=== PATIENT | female | born 1940 | race Hispanic/Latino ===

== ENCOUNTER 2017-03-12 18:46 | Inpatient (IN) | payer MEDICARE, OTHER ==
[2017-03-12 19:55] LABS: BASO # 0.1 K/uL (0.0-0.2); EOS # 0.3 K/uL (0.0-0.7); EOS % 3.3 % (0.0-4.0); HEMOGLOBIN 9.1 g/dL (12.0-16.0); LYMPH # 1.6 K/uL (1.0-4.3); LYMPH % 20.5 % (20.0-40.0); MEAN CELL VOLUME 83.3 fl (81.0-99.0); MEAN CORPUSCULAR HEMOGLOBIN 25.3 pg (27.0-31.0); MEAN CORPUSCULAR HGB CONC 30.3 g/dL (33.0-37.0); MEAN PLATELET VOLUME 7.9 fl (7.2-11.7); MONO # 0.8 K/uL (0.0-0.8); MONO % 9.6 % (0.0-10.0); NEUT # 5.2 K/uL (1.8-7.0); NEUT % 65.6 % (50.0-75.0); NRBC % 0.1 % (0.0-0.0); RBC 3.59 Mil/uL (3.80-5.20); RED CELL DISTRIBUTION WIDTH 18.4 % (11.5-14.5)
--- NOTE | 2017-03-12 19:55 | ED PDOC ---
Syncope/Near Syncope/Dizziness Time Seen by Provider: 03/12/17 18:55 Chief Complaint (Provider): Fall History Per: Patient, Family (son and ) History/Exam Limitations: no limitations Onset/Duration Of Symptoms: Hrs (1 hours ago ) Current Symptoms Are (Timing): Better Additional Complaint(s): 76 year old female presents to the emergency department accompanied by son and partner with a complaint of a right shoulder pain status post injury after she had weakness to the legs bilaterally causing her to fall to the ground, witness by partner, 1 hour prior to arrival. Associated with chronic neck and back pain. Patient has had a few episodes of falling to the ground in the past. Last two episodes were yesterday, 03/11/2017 while walking in the living room and 2 days ago, while in the bathroom. Reports she has generalized weakness and thirst after every fall. Patient has a past medical history of anemia, thyroid, osteopenia, and hypertension. Patient had a coronary angiogram about 2-3 years ago and one last month. Denies dizziness, syncope, chest pain, shortness of breath, and palpitations or head injury. PCP: Dr. Barron and Dr. Radha Callahan Past Medical History Vital Signs: Last Vital Signs Temp 98 F 03/12/17 18:48 Pulse 64 03/12/17 18:48 Resp 20 03/12/17 18:48 BP 134/72 03/12/17 18:48 Pulse Ox - Medical History PMH: Anemia (Iron IV), Anxiety, CAD (catherization last month), Depression, HTN , Hypercholesterolemia, Hypothyroidism, Chronic Kidney Disease Denies: HIV - Surgical History Surgical History: Tonsillectomy - Family History Family History: States: Unknown Family Hx - Home Medications Home Medications: Ambulatory Orders Medication Instructions Recorded Rosuvastatin Calcium [Crestor] 40 mg PO DAILY 05/09/14 Venlafaxine [Effexor XR] 150 mg PO BID 05/09/14 ALPRAZolam [Xanax] 1 mg PO BID 03/12/17 Aspirin [Aspirin Chewable] 81 mg PO DAILY 03/12/17 Atenolol [Tenormin] 25 mg PO BID 03/12/17 Atenolol [Tenormin] 50 mg PO DAILY 03/12/17 Levothyroxine [Synthroid] 50 mcg PO DAILY 03/12/17 Lisinopril/Hydrochlorothiazide 1 tab PO DAILY 03/12/17 [Lisinopril-Hctz 10-12.5 mg Tab] Meloxicam [Mobic] 7.5 mg PO DAILY 03/12/17 - Allergies Allergies/Adverse Reactions: Allergies Allergy/AdvReac Type Severity Reaction Status Date / Time No Known Allergies Allergy Verified 05/09/14 16:45 Review of Systems ROS Statement: Except As Marked, All Systems Reviewed And Found Negative Constitutional: Positive for: Weakness (generalized). Negative for: Other ( head injury or syncope) Cardiovascular: Negative for: Chest Pain, Palpitations Respiratory: Negative for: Shortness of Breath Musculoskeletal: Positive for: Neck Pain (not new ), Shoulder Pain (right shoulder pain), Back Pain (not new ) Neurological: Positive for: Weakness (weakness of the leg bilaterally). Negative for: Dizziness Physical Exam - Reviewed Nursing Documentation Reviewed: Yes Vital Signs Reviewed: Yes - Physical Exam Appears: Positive for: Well, Non-toxic, No Acute Distress Head Exam: Positive for: ATRAUMATIC, NORMAL INSPECTION, NORMOCEPHALIC Skin: Positive for: Normal Color, Warm, Dry Eye Exam: Positive for: Normal appearance, PERRL Neck: Positive for: Normal, Pain On Movement Of Neck (C-spine tenderness) Cardiovascular/Chest: Positive for: Regular Rate, Rhythm. Negative for: Murmur Respiratory: Positive for: Normal Breath Sounds. Negative for: Accessory Muscle Use, Respiratory Distress Back: Positive for: Normal Inspection (no thoracic or lower lumbar midline tenderness) Extremity: Positive for: Normal ROM (Full range of motion of all the upper and lower extremities except the right shoulder), Tenderness (Tenderness around left shoulder with decreased ROM secondary to pain). Negative for: Other (no hip, humerus, elbow or foream tenderness) Neurologic/Psych: Positive for: Alert, cafe or restaurant manager II-XII (intact), Oriented (x3), Cerebellar Tests (intact). Negative for: Facial Droop - Laboratory Results Result Diagrams: 03/12/17 19:39 03/12/17 19:39 - ECG Interpretation Of ECG: NSR @ 79. - Radiology X-Ray: Interpreted by In X-Ray Interpretation: Other (? Widened mediastinum) - Other Rad XR L shoulder X-Ray: Interpreted by In X-Ray Interpretation: No fx. Medical Decision Making Medical Decision Making: Time: 1902 Initial impression: Shoulder Pain and weakness Status Post Fall Initial plan: --Cervical Spine CT --Head CT --Comp Metabolic Panel --TSH --Troponin I --ED Urine dipstick --EKG --CBC --PTT --Prothrombin --Chest Portable --Accuheck --Ortho BP --Shoulder Left x-ray --Urinalysis --reevaluation Time: 1948 --Angiography CT Time: 2099 --Head CT FINDINGS: Brain: [id number] atrophy. No intracranial hemorrhage. No mass. Minimal decreased attenuation within periventricular white matter. Probable chronic lacunar infarct within RIGHT basal ganglia. No edema. Ventricles: No hydrocephalus. Bones/joints: No acute fracture. Soft tissues: Unremarkable. Vasculature: Minimal atherosclerotic disease of intracranial arteries. Sinuses: No acute sinusitis. Mastoid air cells: No mastoid effusion. Orbits: Unremarkable as visualized. IMPRESSION: 1. No intracranial hemorrhage. 2. Nonspecific white matter changes. 3. Incidental/non-acute findings are described above Time: 2102 --Cervical Spine CT FINDINGS: Vertebrae: No acute fracture. Discs/spinal canal/neural foramina: Moderate to severe degenerative disc disease within lower cervical spine. Disc herniations within mid and lower cervical spine, suboptimally evaluated. Mild indentation thecal sac/cord lower cervical spine. Neuroforaminal narrowing within lower cervical spine. Soft tissues: Unremarkable. IMPRESSION: 1. No fracture. 2. Incidental/non-acute findings are described above. Time: 2145 --CT AngioGraphy FINDINGS: Limitations: Motion artifact - mild. Pulmonary arteries: No pulmonary embolism. Aorta: Mild atherosclerotic disease. No dissection. No aneurysm. Lungs: Mild atelectasis/scarring. No consolidation. Pleural space: No significant effusion. No pneumothorax. Heart: Borderline cardiomegaly. No significant pericardial effusion. Mediastinum: Moderate-sized hiatal hernia.Bones/joints: Mild curvature of spine. Deformity inferior endplate T12 vertebral body, chronic. No acute fracture. Soft tissues: Unremarkable. Lymph nodes: No pathologically enlarged lymph nodes. IMPRESSION: 1. No definite CT evidence of visceral injury. 2. Incidental/non-acute findings are described above. --CT Angiography Abdomen and pelvis FINDINGS: Limitations: Motion artifact - mild. VASCULATURE: Aorta: Meaq-yo-phvjlfgk atherosclerotic disease. No dissection. No aneurysm. Celiac trunk and mesenteric arteries: No occlusion or significant stenosis. Renal arteries: No occlusion or significant stenosis. Iliac arteries: Mild atherosclerotic disease. No occlusion or significant stenosis. ABDOMEN: Liver: Fatty infiltration. Gallbladder and bile ducts: No calcified stones. No ductal dilation. Pancreas: No ductal dilation. N Adrenals: No mass. Kidneys and ureters: No obstructing stones. No hydronephrosis. No solid mass. Stomach and bowel: Scattered diverticula within colon. No associated inflammatory stranding. No definite mural thickening. No obstruction. Appendix: Normal caliber. No inflammation. PELVIS: Bladder: No stones. No mass. Reproductive: Unremarkable as visualized. ABDOMEN and PELVIS: Intraperitoneal space: No significant fluid collection. No free air. Bones/joints: Mild curvature of spine. Degenerative changes of spine. No acute fracture. Soft tissues: Tiny umbilical hernia containing fat. Lymph nodes: No pathologically enlarged lymph nodes. IMPRESSION: 1. No definite CT evidence of visceral injury. 2. Incidental/non-acute findings are described above. Pt with continued lightheadedness and generalized weakness, will place in obs tele for IVF hydration, requests to be admitted under Dr. Kim (previous PMD) . Scribe Attestation: Documented by Shruthi Collier, acting as a scribe for Amada Rolle MD. Provider Scribe Attestation: All medical record entries made by the Scribe were at my direction and personally dictated by me. I have reviewed the chart and agree that the record accurately reflects my personal performance of the history, physical exam, medical decision making, and the department course for this patient. I have also personally directed, reviewed, and agree with the discharge instructions and disposition. Disposition - Clinical Impression Clinical Impression: Orthostatic hypotension, Generalized weakness, Frequent falls, Shoulder injury - Patient ED Disposition Is Patient to be Admitted: Yes - Disposition Disposition Time: 22:30 Condition: STABLE Forms: [employer] ([employer]) - Pt Status Changed To: Hospital Disposition Of: Observation - POA Present On Arrival: None
[2017-03-12 20:10] LABS: ALB/GLOB RATIO 1.3 (1.0-2.1); ALBUMIN 4.2 g/dL (3.5-5.0); ALT/SGPT 34 U/L (9-52); AST/SGOT 28 U/L (14-36); BLOOD UREA NITROGEN 23 mg/dl (7-17); CALCIUM 9.8 mg/dL (8.4-10.2); GFR AFRICAN-AMERICAN 41; GFR NON-AFRICAN AMERICAN 34
[2017-03-12] MEDS ORDERED: Sodium Chloride 0.9% 1,000 ML IV STA (20:11)
[2017-03-12 20:23] LABS: INR 1.2 (0.9-1.2); PARTIAL THROMBOPLASTIN TIME 27.6 Seconds (25.6-37.1); PROTHROMBIN TIME 12.8 Seconds (9.8-13.1)
[2017-03-12] MEDS ORDERED: Iodixanol 320 MG/ML 100 ML BOTTLE IV ONE (20:24)
[2017-03-12] MEDS ORDERED: Sodium Chloride 0.9% 50 ML IV ONE (20:24)
--- NOTE | 2017-03-12 21:00 | CT ---
EXAM: CT Head Without Intravenous Contrast CLINICAL HISTORY: 76 years old, female; Injury or trauma; Fall; Initial encounter; Laceration; Consciousness not specified; Without residual foreign body; Head, generalized; Injury date: 3 days ago; Injury details: S/P falling dizziness; Additional info: Syncope TECHNIQUE: Axial computed tomography images of the head/brain without intravenous contrast. All CT scans at this facility use one or more dose reduction techniques, viz.: automated exposure control; ma/kV adjustment per patient size (including targeted exams where dose is matched to indication; i.e. head); or iterative reconstruction technique. Coronal and sagittal reformatted images were created and reviewed. COMPARISON: No relevant prior studies available. FINDINGS: Brain: Dyhn-xg-onbyrzcu atrophy. No intracranial hemorrhage. No mass. Minimal decreased attenuation within periventricular white matter. Probable chronic lacunar infarct within RIGHT basal ganglia. No edema. Ventricles: No hydrocephalus. Bones/joints: No acute fracture. Soft tissues: Unremarkable. Vasculature: Minimal atherosclerotic disease of intracranial arteries. Sinuses: No acute sinusitis. Mastoid air cells: No mastoid effusion. Orbits: Unremarkable as visualized. IMPRESSION: 1. No intracranial hemorrhage. 2. Nonspecific white matter changes. 3. Incidental/non-acute findings are described above.
--- NOTE | 2017-03-12 21:03 | CT ---
EXAM: CT Cervical Spine Without Intravenous Contrast CLINICAL HISTORY: 76 years old, female; Injury or trauma; Fall; Initial encounter; Laceration; Without foreign body; Injury date: 3 days ago; Injury details: S/P falling. Dizziness; Patient HX: Tonsillectomy. Cardiac catherization TECHNIQUE: Axial computed tomography images of the cervical spine without intravenous contrast. All CT scans at this facility use one or more dose reduction techniques, viz.: automated exposure control; ma/kV adjustment per patient size (including targeted exams where dose is matched to indication; i.e. head); or iterative reconstruction technique. Coronal and sagittal reformatted images were created and reviewed. COMPARISON: No relevant prior studies available. FINDINGS: Vertebrae: No acute fracture. Discs/spinal canal/neural foramina: Moderate to severe degenerative disc disease within lower cervical spine. Disc herniations within mid and lower cervical spine, suboptimally evaluated. Mild indentation thecal sac/cord lower cervical spine. Neuroforaminal narrowing within lower cervical spine. Soft tissues: Unremarkable. IMPRESSION: 1. No fracture. 2. Incidental/non-acute findings are described above.
--- NOTE | 2017-03-12 21:46 | CT ---
EXAM: CT Angiography Chest Without and With Intravenous Contrast CLINICAL HISTORY: 76 years old, female; Injury or trauma; Fall; Initial encounter; Laceration; Without foreign body; Generalized, abdominal; Injury date: 3 days ago; Injury details: Falling. Dizziness; Prior surgery; Surgery date: Post-operative (0-2 days); Surgery type: Cardiac catherization. Tonsillectomy; Additional info: Fall x 3 TECHNIQUE: Axial computed tomographic angiography images of the chest without and with intravenous contrast using pulmonary embolism protocol. All CT scans at this facility use one or more dose reduction techniques, viz.: automated exposure control; ma/kV adjustment per patient size (including targeted exams where dose is matched to indication; i.e. head); or iterative reconstruction technique. MIP reconstructed images were created and reviewed. Coronal and sagittal reformatted images were created and reviewed. CONTRAST: 98 mL of VISIPAQUE administered intravenously. COMPARISON: No relevant prior studies available. FINDINGS: Limitations: Motion artifact - mild. Pulmonary arteries: No pulmonary embolism. Aorta: Mild atherosclerotic disease. No dissection. No aneurysm. Lungs: Mild atelectasis/scarring. No consolidation. Pleural space: No significant effusion. No pneumothorax. Heart: Borderline cardiomegaly. No significant pericardial effusion. Mediastinum: Moderate-sized hiatal hernia. Bones/joints: Mild curvature of spine. Deformity inferior endplate T12 vertebral body, chronic. No acute fracture. Soft tissues: Unremarkable. Lymph nodes: No pathologically enlarged lymph nodes. IMPRESSION: 1. No definite CT evidence of visceral injury. 2. Incidental/non-acute findings are described above. EXAM: CT Angiography Abdomen and Pelvis Without and With Intravenous Contrast CLINICAL HISTORY: 76 years old, female; Injury or trauma; Fall; Initial encounter; Laceration; Without foreign body; Generalized, abdominal; Injury date: 3 days ago; Injury details: Falling. Dizziness; Prior surgery; Surgery date: Post-operative (0-2 days); Surgery type: Cardiac catherization. Tonsillectomy; Additional info: Fall x 3 TECHNIQUE: Axial computed tomographic angiography images of the abdomen and pelvis without and with intravenous contrast. All CT scans at this facility use one or more dose reduction techniques, viz.: automated exposure control; ma/kV adjustment per patient size (including targeted exams where dose is matched to indication; i.e. head); or iterative reconstruction technique. MIP reconstructed images were created and reviewed. Coronal and sagittal reformatted images were created and reviewed. CONTRAST: 98 mL of VISIPAQUE administered intravenously. COMPARISON: No relevant prior studies available. FINDINGS: Limitations: Motion artifact - mild. VASCULATURE: Aorta: Dkjh-hs-zhfumwkr atherosclerotic disease. No dissection. No aneurysm. Celiac trunk and mesenteric arteries: No occlusion or significant stenosis. Renal arteries: No occlusion or significant stenosis. Iliac arteries: Mild atherosclerotic disease. No occlusion or significant stenosis. ABDOMEN: Liver: Fatty infiltration. Gallbladder and bile ducts: No calcified stones. No ductal dilation. Pancreas: No ductal dilation. No mass. Spleen: No splenomegaly. Adrenals: No mass. Kidneys and ureters: No obstructing stones. No hydronephrosis. No solid mass. Stomach and bowel: Scattered diverticula within colon. No associated inflammatory stranding. No definite mural thickening. No obstruction. Appendix: Normal caliber. No inflammation. PELVIS: Bladder: No stones. No mass. Reproductive: Unremarkable as visualized. ABDOMEN and PELVIS: Intraperitoneal space: No significant fluid collection. No free air. Bones/joints: Mild curvature of spine. Degenerative changes of spine. No acute fracture. Soft tissues: Tiny umbilical hernia containing fat. Lymph nodes: No pathologically enlarged lymph nodes.
[2017-03-12 23:03] LABS: SQUAMOUS EPITHIAL 4 /hpf (0-5); URINE BILIRUBIN NEGATIVE (NEGATIVE); URINE BLOOD NEGATIVE (NEGATIVE); URINE CLARITY SLIGHTY-CLOUDY (Clear); URINE COLOR YELLOW (YELLOW); URINE GLUCOSE (UA) NEG (Normal); URINE LEUKOCYTE ESTERASE TRACE Leu/uL (Negative); URINE NITRATE NEGATIVE (NEGATIVE); URINE PROTEIN 100 mg/dL (NEGATIVE); URINE UROBILINOGEN 0.2-1.0 mg/dL (0.2-1.0)
[2017-03-13] MEDS: Sodium Chloride 0.9% 1,000 ML IV SCH ×2 (06:47→22:19)
[2017-03-13] MEDS: Levothyroxine 50 MCG TAB PO SCH (08:55)
[2017-03-13] MEDS: Venlafaxine 150 mg ER Cap PO SCH ×2 (08:56→16:35)
--- NOTE | 2017-03-13 10:07 | RAD ---
HISTORY: Syncope COMPARISON: 03/06/2014 FINDINGS: LUNGS: No active pulmonary disease. PLEURA: No significant pleural effusion identified, no pneumothorax apparent. CARDIOVASCULAR: Unchanged. OSSEOUS STRUCTURES: No significant abnormalities. VISUALIZED UPPER ABDOMEN: Normal. OTHER FINDINGS: Mild to moderate-sized retrocardiac hiatal hernia is seen. IMPRESSION: No active disease.
--- NOTE | 2017-03-13 10:10 | RAD ---
PROCEDURE: Radiographs of the Left Shoulder HISTORY: Fall COMPARISON: No prior. FINDINGS: BONES: Three views of the left shoulder were performed. No fracture is seen. No dislocation is noted. There is a high-riding humeral head appreciated suggesting rotator cuff pathology. There is also degenerative changes seen in the left AC joint without widening. Minimal calcific bursitis is noted. Visualized left ribs are intact. No lytic process is seen. JOINTS: See above SOFT TISSUES: See above OTHER FINDINGS: None. IMPRESSION: No fracture or dislocation.
--- NOTE | 2017-03-13 11:59 | CARD ---
APPROVED REPORT EKG Measurement Heart [id number] <Conclusion> Normal sinus rhythm Nonspecific T wave abnormality Abnormal ECG
--- NOTE | 2017-03-13 12:06 | CP.PCM.HP ---
History of Present Illness - History of Present Illness History of Present Illness: This is a 76 y/o female admitted for an episode of near syncope at home. Claims that she felt dizzy while at home and upon standing up, she almost had a fall. She has been on ferrous bid but has not been compliant with follow up. Has a hx of chronic recurrent anemia and HTN, hyperlipidemia and hypothyroidism. Previous work up showed chronic iron def anemia. She denies any headaches, dizziness chest pain or SOB. Present on Admission - Present on Admission Any Indicators Present on Admission: No History of DVT/PE: No History of Uncontrolled Diabetes: No Urinary Catheter: No Decubitus Ulcer Present: No Review of Systems - Neurological Neurological: Dizziness Past Patient History - Infectious Disease Hx of Infectious Diseases: None - Past Medical History & Family History Past Medical History?: Yes - Past Social History Smoking Status: Never Smoked - CARDIAC Hx Cardiac Disorders: Yes - PULMONARY Hx Respiratory Disorders: No - NEUROLOGICAL Hx Neurological Disorder: No - HEENT Hx HEENT Problems: Yes - RENAL Hx Chronic Kidney Disease: Yes - ENDOCRINE/METABOLIC Hx Endocrine Disorders: Yes - HEMATOLOGICAL/ONCOLOGICAL Hx Blood Disorders: Yes - INTEGUMENTARY Hx Dermatological Problems: Yes - MUSCULOSKELETAL/RHEUMATOLOGICAL Hx Musculoskeletal Disorders: Yes - GASTROINTESTINAL Hx Gastrointestinal Disorders: No - GENITOURINARY/GYNECOLOGICAL Hx Genitourinary Disorders: No - PSYCHIATRIC Hx Psychophysiologic Disorder: Yes - SURGICAL HISTORY Hx Surgeries: Yes Hx Tonsillectomy: Yes - ANESTHESIA Hx Anesthesia: Yes Hx Anesthesia Reactions: No Meds Home Medications: Home Medication List Medication Instructions Recorded Confirmed Type Ferrous Fumarate [Annalise-Sequel] 324 mg PO DAILY #30 tab 03/15/17 Rx Allergies/Adverse Reactions: Allergies Allergy/AdvReac Type Severity Reaction Status Date / Time No Known Allergies Allergy Verified 05/09/14 16:45 Physical Exam - Head Exam Head Exam: NORMAL INSPECTION - Eye Exam Eye Exam: Normal appearance - ENT Exam ENT Exam: Mucous Membranes Moist - Neck Exam Neck exam: Positive for: Normal Inspection - Respiratory Exam Respiratory Exam: Clear to Auscultation Bilateral - Cardiovascular Exam Cardiovascular Exam: REGULAR RHYTHM - GI/Abdominal Exam GI & Abdominal Exam: Normal Bowel Sounds - Neurological Exam Neurological exam: CN II-XII Intact, Oriented x3 - Psychiatric Exam Psychiatric exam: Normal Affect - Skin Skin Exam: Dry Results - Vital Signs Recent Vital Signs: Last Vital Signs Temp 98.8 F 03/13/17 08:17 Pulse 89 01/07/18 09:00 Resp 20 03/13/17 08:17 BP 122/50 L 03/13/17 08:55 Pulse Ox 95 03/13/17 08:17 - Labs Result Diagrams: 03/15/17 08:50 03/14/17 04:35 Labs: Laboratory Results - last 24 hr 03/12/17 03/12/17 03/12/17 19:06 19:39 19:39 WBC 8.0 RBC 3.59 L Hgb 9.1 L Hct 29.9 L MCV 83.3 D MCH 25.3 L MCHC 30.3 L RDW 18.4 H Plt Count 414 H D MPV 7.9 Neut % (Auto) 65.6 Lymph % (Auto) 20.5 Amelia % (Auto) 9.6 Eos % (Auto) 3.3 Baso % (Auto) 1.0 Neut # 5.2 Lymph # 1.6 Amelia # 0.8 Eos # 0.3 Baso # 0.1 PT INR APTT Sodium 141 Potassium 3.7 Chloride 100 Carbon Dioxide 30 Anion Gap 15 BUN 23 H Creatinine 1.5 H Est GFR ( Amer) 41 Est GFR (Non-Af Amer) 34 POC Glucose (mg/dL) 119 H Random Glucose 128 H Calcium 9.8 Total Bilirubin < 0.1 L AST 28 ALT 34 Alkaline Phosphatase 73 Troponin I < 0.0120 Total Protein 7.4 Albumin 4.2 Globulin 3.3 Albumin/Globulin Ratio 1.3 TSH 3rd Generation Urine Color Urine Clarity Urine pH Ur Specific [place] Urine Protein Urine Glucose (UA) Urine Ketones Urine Blood Urine Nitrate Urine Bilirubin Urine Urobilinogen Ur Leukocyte Esterase Urine RBC (Auto) Urine Microscopic WBC Ur Squamous Epith Cells 03/12/17 03/12/17 03/12/17 19:39 20:17 22:32 WBC RBC Hgb Hct MCV MCH MCHC RDW Plt Count MPV Neut % (Auto) Lymph % (Auto) Amelia % (Auto) Eos % (Auto) Baso % (Auto) Neut # Lymph # Amelia # Eos # Baso # PT 12.8 INR 1.2 APTT 27.6 Sodium Potassium Chloride Carbon Dioxide Anion Gap BUN Creatinine Est GFR ( Amer) Est GFR (Non-Af Amer) POC Glucose (mg/dL) Random Glucose Calcium Total Bilirubin AST ALT Alkaline Phosphatase Troponin I Total Protein Albumin Globulin Albumin/Globulin Ratio TSH 3rd Generation 3.64 Urine Color Yellow Urine Clarity Slighty-cloudy Urine pH 6.0 Ur Specific [place] > 1.060 H Urine Protein 100 Urine Glucose (UA) Neg Urine Ketones Negative Urine Blood Negative Urine Nitrate Negative Urine Bilirubin Negative Urine Urobilinogen 0.2-1.0 Ur Leukocyte Esterase Trace Urine RBC (Auto) 3 Urine Microscopic WBC 7 H Ur Squamous Epith Cells 4 Assessment & Plan (1) Generalized weakness Status: Acute (2) Orthostatic hypotension Status: Acute (3) Anemia Status: Acute Priority: High (4) Hyperlipidemia Status: Chronic (5) Hypertension Status: Chronic Priority: High (6) Hypothyroidism Status: Chronic Priority: High - Assessment and Plan (Free Text) Plan: monitor cbc cmp check A1c tsh check ECHO transfuse if needed.
[2017-03-14 05:59] LABS: MEAN CELL VOLUME 81.9 fl (81.0-99.0); MEAN CORPUSCULAR HEMOGLOBIN 26.5 pg (27.0-31.0); MEAN CORPUSCULAR HGB CONC 32.3 g/dL (33.0-37.0); RBC 2.64 Mil/uL (3.80-5.20); RED CELL DISTRIBUTION WIDTH 18.7 % (11.5-14.5); WHITE BLOOD COUNT 7.7 K/uL (4.8-10.8)
[2017-03-14] MEDS: Levothyroxine 50 MCG TAB PO SCH (06:02)
[2017-03-14 06:04] LABS: ALB/GLOB RATIO 1.1 (1.0-2.1); ALBUMIN 3.2 g/dL (3.5-5.0); ALT/SGPT 27 U/L (9-52); AST/SGOT 20 U/L (14-36); BLOOD UREA NITROGEN 22 mg/dl (7-17); CALCIUM 8.7 mg/dL (8.4-10.2); GFR AFRICAN-AMERICAN 48; GFR NON-AFRICAN AMERICAN 40
[2017-03-14] MEDS: Venlafaxine 150 mg ER Cap PO SCH ×2 (08:59→16:13)
[2017-03-14 16:41] LABS: MEAN CELL VOLUME 82.5 fl (81.0-99.0); MEAN CORPUSCULAR HEMOGLOBIN 25.3 pg (27.0-31.0); MEAN CORPUSCULAR HGB CONC 30.6 g/dL (33.0-37.0); RBC 2.66 Mil/uL (3.80-5.20); RED CELL DISTRIBUTION WIDTH 18.5 % (11.5-14.5); WHITE BLOOD COUNT 7.8 K/uL (4.8-10.8)
[2017-03-14 16:46] LABS: HEMOGLOBIN 6.7 g/dL (12.0-16.0)
--- NOTE | 2017-03-14 17:02 | CARD ---
APPROVED REPORT EXAM: Two-dimensional and M-mode echocardiogram with Doppler and color Doppler. Other Information Quality : AverageRhythm : NSR INDICATION Hypertension/HCVD 2D DIMENSIONS IVSd1.27 (0.7-1.1cm)LVDd4.20 (3.9-5.9cm) LVOT Diameter2.00 (1.8-2.4cm)PWd1.18 (0.7-1.1cm) IVSs1.47 (0.8-1.2cm)LVDs2.90 (2.5-4.0cm) FS (%) 31.1 %PWs1.69 (0.8-1.2cm) LVEF (%)59.0 (>50%) M-Mode DIMENSIONS Left Atrium (MM)3.89 (2.5-4.0cm)IVSd0.90 (0.7-1.1cm) Aortic Root3.05 (2.2-3.7cm)LVDd5.20 (4.0-5.6cm) Aortic Cusp Exc.1.71 (1.5-2.0cm)PWd0.81 (0.7-1.1cm) IVSs1.40 cmFS (%) 51 % LVDs2.55 (2.0-3.8cm)PWs2.08 cm LVEF (%)81 (>50%) Aortic Valve AoV Peak Yohgyrxf088.4cm/sAoV VTI34.9cmAO Peak GR.16mmHg LVOT Peak Dzboitmx218.5cm/sLVOT VTI25.42cmAO Mean GR.7mmHg AI P 1/2 [id number] Mitral Valve MV E Jjwwhgar02.3cm/sMV DECEL [id number] A Ojxcratz01.3cm/s MV JNA91acH/A ratio0.7MVA (PHT)5.23cm2 TDI Lateral E' Peak V9.21cm/sMedial E' Peak V5.30cm/sE/Lateral E'6.9 E/Medial E'11.9 Tricuspid Valve TR Peak Lehtziqh112oi/sRAP PQIIECWI2mrEiMV Peak Gr.26mmHg [id number] LEFT VENTRICLE The left ventricle is normal in size. There is mild concentric left ventricular hypertrophy on the 2D study. The left ventricular function is normal. The left ventricular ejection fraction is - 70%. There is normal LV segmental wall motion. Transmitral Doppler flow pattern is Grade I-abnormal relaxation pattern. No left ventricle thrombus noted on this study. There is no ventricular septal defect visualized. There is no left ventricular aneurysm. There is no mass noted in the left ventricle. RIGHT VENTRICLE The right ventricle is normal size. The right ventricle is mildly hypertrophied. The right ventricular systolic function is normal. ATRIA The left atrium is mildly dilated on the 2D study. There is no thrombus suspected in the left atrium. The right atrium size is normal. The interatrial septum is intact with no evidence for an atrial septal defect. AORTIC VALVE The aortic valve is normal in structure. There is moderate aortic regurgitation. There is no aortic valvular stenosis. MITRAL VALVE The mitral valve is normal in structure. There is no evidence of mitral valve prolapse. There is no mitral valve stenosis. There is no mitral valve regurgitation noted. TRICUSPID VALVE The tricuspid valve is normal in structure. There is mild to moderate tricuspid regurgitation. Right ventricular systolic pressure is estimated at 38 mmHg. There is no tricuspid valve prolapse or vegetation. There is no tricuspid valve stenosis. PULMONIC VALVE The pulmonary valve is normal in structure. There is no pulmonic valvular regurgitation. GREAT VESSELS The aortic root is normal in size. The IVC was not visualized. PERICARDIAL EFFUSION The pericardium appears normal. There is no pleural effusion. <Conclusion> The left ventricle is normal in size. There is mild concentric left ventricular hypertrophy. The left ventricular function is normal. The left ventricular ejection fraction is - 70%. The left atrium is mildly enlarged. The mitral, aortic and tricuspid valves are normal. There is moderate aortic regurgitation and mild to moderate tricuspid regurgitation.
[2017-03-14 17:47] LABS: IRON 23 ug/dL (37-170)
[2017-03-14 17:57] LABS: TOTAL IRON BINDING CAPACITY 386 ug/dL (250-450)
[2017-03-14 18:06] LABS: % IRON SATURATION 6 % (20-55)
[2017-03-15] MEDS: Levothyroxine 50 MCG TAB PO SCH (05:38)
[2017-03-15 08:17] VITALS: RESP 20
[2017-03-15 09:10] LABS: HEMOGLOBIN 11.5 g/dL (12.0-16.0); MEAN CELL VOLUME 82.8 fl (81.0-99.0); MEAN CORPUSCULAR HEMOGLOBIN 27.2 pg (27.0-31.0); MEAN CORPUSCULAR HGB CONC 32.8 g/dL (33.0-37.0); RBC 4.24 Mil/uL (3.80-5.20); RED CELL DISTRIBUTION WIDTH 16.9 % (11.5-14.5); WHITE BLOOD COUNT 7.3 K/uL (4.8-10.8)
[2017-03-15] MEDS: Venlafaxine 150 mg ER Cap PO SCH (10:54)
--- NOTE | 2017-03-15 11:49 | CP.PCM.PN ---
Subjective - Date & Time of Evaluation Date of Evaluation: 03/14/17 Time of Evaluation: 10:00 - Subjective Subjective: Patient feels very weak. Noted very low Hgb. Has no chest pain or SOB. Objective - Vital Signs/Intake and Output Vital Signs (last 24 hours): Temp Pulse Resp BP Pulse Ox 97.6 F 81 20 173/78 H 97 03/15/17 08:16 03/15/17 09:28 03/15/17 08:16 03/15/17 09:28 03/15/17 08:16 - Medications Medications: Current Medications Alprazolam (Xanax) 1 mg PO BID [facility] Last Admin: 03/15/17 09:32 Dose: 1 mg Aspirin (Aspirin Chewable) 81 mg PO DAILY [facility] Last Admin: 03/15/17 09:28 Dose: 81 mg Atenolol (Tenormin) 25 mg PO BID [facility] Last Admin: 03/15/17 09:28 Dose: 25 mg Atorvastatin Calcium (Lipitor) 80 mg PO DAILY [facility] Last Admin: 03/15/17 09:28 Dose: 80 mg Hydrocortisone (Cortizone 1% Cream) 1 applic TOP BID [facility] Last Admin: 03/15/17 09:27 Dose: 1 applic Iron Sucrose 200 mg/ Sodium (Chloride) 110 mls @ 105 mls/hr IVPB DAILY [facility] Levothyroxine Sodium (Synthroid) 50 mcg PO DAILY@0630 [facility] Last Admin: 03/15/17 05:38 Dose: 50 mcg Venlafaxine HCl (Effexor Xr) 150 mg PO BID [facility] Last Admin: 03/15/17 10:54 Dose: 150 mg - Labs Labs: 03/15/17 08:50 03/14/17 04:35 PT 12.8 Seconds (9.8-13.1) 03/12/17 19:39 INR 1.2 (0.9-1.2) 03/12/17 19:39 APTT 27.6 Seconds (25.6-37.1) 03/12/17 19:39 - Head Exam Head Exam: NORMAL INSPECTION - Eye Exam Eye Exam: Normal appearance - ENT Exam ENT Exam: Mucous Membranes Moist - Respiratory Exam Respiratory Exam: Clear to Ausculation Bilateral - Cardiovascular Exam Cardiovascular Exam: REGULAR RHYTHM - GI/Abdominal Exam GI & Abdominal Exam: Normal Bowel Sounds - Neurological Exam Neurological Exam: Awake, Oriented x3 - Psychiatric Exam Psychiatric exam: Normal Mood Assessment and Plan (1) Generalized weakness Status: Acute (2) Orthostatic hypotension Status: Acute (3) Anemia Status: Acute (4) Hypertension Status: Chronic (5) Hypothyroidism Status: Chronic - Assessment and Plan (Free Text) Plan: Contmeds discussed need for transfusion hematology eval repeat CBC in AM.
--- NOTE | 2017-03-15 11:59 | CP.PCM.DIS ---
Provider - Provider Date of Admission: 03/13/17 22:00 Attending physician: Andrea Kim MD Time Spent in preparation of Discharge (in minutes): 30 Diagnosis - Discharge Diagnosis (1) Generalized weakness Status: Acute (2) Orthostatic hypotension Status: Acute (3) Anemia Status: Acute Priority: High (4) Hypertension Status: Chronic Priority: High (5) Hypothyroidism Status: Chronic Priority: High Hospital Course - Lab Results Lab Results: Most Recent Lab Values WBC 7.3 K/uL (4.8-10.8) 03/15/17 08:50 RBC 4.24 Mil/uL (3.80-5.20) 03/15/17 08:50 Hgb 11.5 g/dL (12.0-16.0) L D 03/15/17 08:50 Hct 35.1 % (34.0-47.0) 03/15/17 08:50 MCV 82.8 fl (81.0-99.0) 03/15/17 08:50 MCH 27.2 pg (27.0-31.0) 03/15/17 08:50 MCHC 32.8 g/dL (33.0-37.0) L 03/15/17 08:50 RDW 16.9 % (11.5-14.5) H 03/15/17 08:50 Plt Count 325 K/uL (130-400) 03/15/17 08:50 MPV 7.9 fl (7.2-11.7) 03/12/17 19:39 Neut % (Auto) 65.6 % (50.0-75.0) 03/12/17 19:39 Lymph % (Auto) 20.5 % (20.0-40.0) 03/12/17 19:39 [place] % (Auto) 9.6 % (0.0-10.0) 03/12/17 19:39 Eos % (Auto) 3.3 % (0.0-4.0) 03/12/17 19:39 Baso % (Auto) 1.0 % (0.0-2.0) 03/12/17 19:39 Neut # 5.2 K/uL (1.8-7.0) 03/12/17 19:39 Lymph # 1.6 K/uL (1.0-4.3) 03/12/17 19:39 [place] # 0.8 K/uL (0.0-0.8) 03/12/17 19:39 Eos # 0.3 K/uL (0.0-0.7) 03/12/17 19:39 Baso # 0.1 K/uL (0.0-0.2) 03/12/17 19:39 PT 12.8 Seconds (9.8-13.1) 03/12/17 19:39 INR 1.2 (0.9-1.2) 03/12/17 19:39 APTT 27.6 Seconds (25.6-37.1) 03/12/17 19:39 Sodium 144 mmol/l (132-148) 03/14/17 04:35 Potassium 4.0 MMOL/L (3.6-5.0) 03/14/17 04:35 Chloride 108 mmol/L (98-107) H 03/14/17 04:35 Carbon Dioxide 25 mmol/L (22-30) 03/14/17 04:35 Anion Gap 15 (10-20) 03/14/17 04:35 BUN 22 mg/dl (7-17) H 03/14/17 04:35 Creatinine 1.3 mg/dl (0.7-1.2) H 03/14/17 04:35 Est GFR ( Amer) 48 03/14/17 04:35 Est GFR (Non-Af Amer) 40 03/14/17 04:35 POC Glucose (mg/dL) 119 mg/dL (65-110) H 03/12/17 19:06 Random Glucose 100 mg/dL (65-105) 03/14/17 04:35 Calcium 8.7 mg/dL (8.4-10.2) 03/14/17 04:35 Iron 23 ug/dL (37-170) L 03/14/17 17:20 TIBC 386 ug/dL (250-450) 03/14/17 17:20 % Saturation 6 % (20-55) L 03/14/17 17:20 Ferritin 4.4 ng/Ml (11.1-264.0) L 03/14/17 17:20 Total Bilirubin < 0.1 mg/dl (0.2-1.3) L 03/14/17 04:35 AST 20 U/L (14-36) 03/14/17 04:35 ALT 27 U/L (9-52) 03/14/17 04:35 Alkaline Phosphatase 60 U/L (38-126) 03/14/17 04:35 Troponin I < 0.0120 ng/mL (0.00-0.120) 03/12/17 19:39 Total Protein 6.2 G/DL (6.3-8.2) L 03/14/17 04:35 Albumin 3.2 g/dL (3.5-5.0) L D 03/14/17 04:35 Globulin 2.9 gm/dL (2.2-3.9) 03/14/17 04:35 Albumin/Globulin Ratio 1.1 (1.0-2.1) 03/14/17 04:35 TSH 3rd Generation 3.64 mIU/ML (0.46-4.68) 03/12/17 20:17 Urine Color Yellow (YELLOW) 03/12/17 22:32 Urine Clarity Slighty-cloudy (Clear) 03/12/17 22:32 Urine pH 6.0 (5.0-8.0) 03/12/17 22:32 Ur Specific [place] > 1.060 (1.003-1.030) H 03/12/17 22:32 Urine Protein 100 mg/dL (NEGATIVE) 03/12/17 22:32 Urine Glucose (UA) Neg mg/dL (Normal) 03/12/17 22:32 Urine Ketones Negative mg/dL (NEGATIVE) 03/12/17 22:32 Urine Blood Negative (NEGATIVE) 03/12/17 22:32 Urine Nitrate Negative (NEGATIVE) 03/12/17 22:32 Urine Bilirubin Negative (NEGATIVE) 03/12/17 22:32 Urine Urobilinogen 0.2-1.0 mg/dL (0.2-1.0) 03/12/17 22:32 Ur Leukocyte Esterase Trace Brianna/uL (Negative) 03/12/17 22:32 Urine RBC (Auto) 3 /hpf (0-3) 03/12/17 22:32 Urine Microscopic WBC 7 /hpf (0-5) H 03/12/17 22:32 Ur Squamous Epith Cells 4 /hpf (0-5) 03/12/17 22:32 Blood Type A POSITIVE 03/14/17 17:20 Antibody Screen Negative 03/14/17 17:20 Crossmatch See Detail 03/14/17 17:20 BBK History Checked Patient has bt 03/14/17 17:20 - Hospital Course Hospital Course: This is a 76 y/o female admitted for near syncope fall and dizziness.Noted to have severe anemia. Has a hx of chronic recurrent anemia and HTN but has poor follow up in the office. She was observed and repeat CBc showed further decrease in Hgb. She was given two units of blood transfusion and repeat cbc showed a Hgb of 11. She was discharged in stable condition and advised follow up with hematology. Discharge Exam - Head Exam Head Exam: NORMAL INSPECTION - Eye Exam Eye Exam: Normal appearance - Respiratory Exam Respiratory Exam: Clear to PA & Lateral, NORMAL BREATHING PATTERN - Cardiovascular Exam Cardiovascular Exam: REGULAR RHYTHM - GI/Abdominal Exam GI & Abdominal Exam: Normal Bowel Sounds - Neurological Exam Neurological exam: CN II-XII Intact, Oriented x3 - Psychiatric Exam Psychiatric exam: Normal Mood Discharge Plan - Follow Up Plan Condition: STABLE Disposition: HOME/ ROUTINE Additional Instructions: advised follow up in office in 2 weeks Rx ferrous 3x a day
[2017-03-15 12:22] VITALS: BP 143/72; PULSE 73; TEMP 98.6; O2SAT 96
--- NOTE | 2017-03-15 13:12 | CP.PCM.CON ---
History of Present Illness - History of Present Illness History of Present Illness: 76 year old female with a history of HTN, hypothyroid, chronic iron deficiency anemia, admitted with near syncope secondary to symptomatic anemia. The patient is s/p PRBC transfusion and reports to feeling better. She has been on and off iron with continued anemia. She denies abnormal bleeding and bleeding. Past medical history: HTN, hypothyroid, anemia Past surgical history: Denies Family history: Denies hematologic and oncologic problems Social history: Denies tobacco, alcohol, and illicit drug use Allergies: NKA Review of systems: All remaining review of systems including HEENT, cardiovascular, respiratory, gastrointestinal, genitourinary, musculoskeletal, dermatologic, neurologic, and psychiatric are negative unless mentioned in the HPI. Past Patient History - Infectious Disease Hx of Infectious Diseases: None - Past Medical History & Family History Past Medical History?: Yes - Past Social History Smoking Status: Never Smoked - CARDIAC Hx Cardiac Disorders: Yes - PULMONARY Hx Respiratory Disorders: No - NEUROLOGICAL Hx Neurological Disorder: No - HEENT Hx HEENT Problems: Yes - RENAL Hx Chronic Kidney Disease: Yes - ENDOCRINE/METABOLIC Hx Endocrine Disorders: Yes - HEMATOLOGICAL/ONCOLOGICAL Hx Blood Disorders: Yes - INTEGUMENTARY Hx Dermatological Problems: Yes - MUSCULOSKELETAL/RHEUMATOLOGICAL Hx Musculoskeletal Disorders: Yes - GASTROINTESTINAL Hx Gastrointestinal Disorders: No - GENITOURINARY/GYNECOLOGICAL Hx Genitourinary Disorders: No - PSYCHIATRIC Hx Psychophysiologic Disorder: Yes - SURGICAL HISTORY Hx Surgeries: Yes Hx Tonsillectomy: Yes - ANESTHESIA Hx Anesthesia: Yes Hx Anesthesia Reactions: No Meds Home Medications: Home Medication List Medication Instructions Recorded Confirmed Type Ferrous Fumarate [Annalise-Sequel] 324 mg PO DAILY #30 tab 03/15/17 Rx Allergies/Adverse Reactions: Allergies Allergy/AdvReac Type Severity Reaction Status Date / Time No Known Allergies Allergy Verified 05/09/14 16:45 - Medications Medications: Current Medications Alprazolam (Xanax) 1 mg PO BID [facility] Last Admin: 03/15/17 09:32 Dose: 1 mg Aspirin (Aspirin Chewable) 81 mg PO DAILY [facility] Last Admin: 03/15/17 09:28 Dose: 81 mg Atenolol (Tenormin) 25 mg PO BID [facility] Last Admin: 03/15/17 09:28 Dose: 25 mg Atorvastatin Calcium (Lipitor) 80 mg PO DAILY [facility] Last Admin: 03/15/17 09:28 Dose: 80 mg Hydrocortisone (Cortizone 1% Cream) 1 applic TOP BID [facility] Last Admin: 03/15/17 09:27 Dose: 1 applic Iron Sucrose 200 mg/ Sodium (Chloride) 110 mls @ 105 mls/hr IVPB DAILY [facility] Levothyroxine Sodium (Synthroid) 50 mcg PO DAILY@0630 [facility] Last Admin: 03/15/17 05:38 Dose: 50 mcg Venlafaxine HCl (Effexor Xr) 150 mg PO BID [facility] Last Admin: 03/15/17 10:54 Dose: 150 mg Physical Exam - Head Exam Head Exam: ATRAUMATIC - Eye Exam Eye Exam: Normal appearance - ENT Exam ENT Exam: Mucous Membranes Dry - Respiratory Exam Respiratory Exam: NORMAL BREATHING PATTERN - Cardiovascular Exam Cardiovascular Exam: +S1, +S2 - GI/Abdominal Exam GI & Abdominal Exam: Normal Bowel Sounds - Extremities Exam Extremities exam: Positive for: normal inspection Results - Vital Signs Recent Vital Signs: Last Vital Signs Temp 98.6 F 03/15/17 12:21 Pulse 73 03/15/17 12:21 Resp 20 03/15/17 12:21 BP 143/72 03/15/17 12:21 Pulse Ox 96 03/15/17 12:21 - Labs Result Diagrams: 03/15/17 08:50 03/14/17 04:35 Labs: Laboratory Results - last 24 hr 03/14/17 03/14/17 03/14/17 16:07 17:20 17:20 WBC 7.8 RBC 2.66 L Hgb 6.7 L Hct 21.9 L MCV 82.5 MCH 25.3 L MCHC 30.6 L RDW 18.5 H Plt Count 285 Iron 23 L TIBC 386 % Saturation 6 L Ferritin 4.4 L Blood Type Antibody Screen Crossmatch BBK History Checked 03/14/17 03/15/17 17:20 08:50 WBC 7.3 RBC 4.24 Hgb 11.5 L D Hct 35.1 MCV 82.8 MCH 27.2 MCHC 32.8 L RDW 16.9 H Plt Count 325 Iron TIBC % Saturation Ferritin Blood Type A POSITIVE Antibody Screen Negative Crossmatch See Detail BBK History Checked Patient has bt Assessment & Plan (1) Anemia Assessment and Plan: iron deficiency s/p PRBC transfusion and IV iron outpatient f/u to continue IV iron Thank you for this interesting consult. Status: Acute Priority: High
== END 2017-03-15 14:00 | disposition home or self-care (01) | DRG 812 ==
LOC: H.ER 18:46 → H.ERHOLD 22:23 → H.TEL 23:39 → OBSVTOIN 03-13 22:00
PROVIDERS: ADMIT Family Medicine; ATTEND Family Medicine
PROC: 30233N1 Transfusion of Nonautologous Red Blood Cells into Peripheral Vein, Percutaneous Approach (ICD-10-PCS; principal; 2017-03-14)
DX: D50.9 Iron deficiency anemia, unspecified (principal); E03.9 Hypothyroidism, unspecified; I95.1 Orthostatic hypotension; N18.9 Chronic kidney disease, unspecified; Z91.19 Patient's noncompliance with other medical treatment and regimen; F45.9 Somatoform disorder, unspecified; E78.5 Hyperlipidemia, unspecified; I12.9 Hypertensive chronic kidney disease with stage 1 through stage 4 chronic kidney disease, or unspecified chronic kidney disease

== ENCOUNTER 2018-01-05 14:09 | Observation (INO) | payer MEDICARE, OTHER ==
[2018-01-05 14:14] VITALS: BMI 26.5
--- NOTE | 2018-01-05 15:18 | ED PDOC ---
HPI: General Adult Time Seen by Provider: 01/05/18 15:05 Chief Complaint (Nursing): Weakness/Neurological Deficit Chief Complaint (Provider): Fatigue History Per: Patient History/Exam Limitations: no limitations Onset/Duration Of Symptoms: Days (x 3) Current Symptoms Are (Timing): Still Present Additional Complaint(s): 77 year old female with a history of anemia and hypertension presents to the ED with increasing fatigue over the last three days. Patient had outpatient bloodwork performed this morning and is unaware of the results. Denies chest pain, shortness of breath and focal weakness. PMD: Dr. Lalita Callahan Past Medical History Reviewed: Historical Data, Nursing Documentation, Vital Signs Vital Signs: Last Vital Signs Temp 99 F 01/05/18 14:13 Pulse 101 H 01/05/18 14:13 Resp BP 128/78 01/05/18 14:13 Pulse Ox 98 01/05/18 14:13 - Medical History PMH: Anemia, Anxiety, CAD (catherization last month), Depression, HTN, Hypercholesterolemia, Hypothyroidism, Chronic Kidney Disease Denies: HIV - Surgical History Surgical History: Tonsillectomy - Family History Family History: States: Unknown Family Hx - Home Medications Home Medications: Ambulatory Orders Medication Instructions Recorded Venlafaxine [Effexor XR] 150 mg PO Q12 05/09/14 ALPRAZolam [Xanax] 1 mg PO Q12 03/12/17 Atenolol [Tenormin] 25 mg PO Q12 03/12/17 Levothyroxine [Synthroid] 50 mcg PO DAILY 03/12/17 Aspirin [Ecotrin] 81 mg PO DAILY 01/05/18 Calcium Carbonate/Vitamin D3 1 tab PO BID 01/05/18 [Caltrate 600 Plus D3 Tablet] Cyanocobalamin [Vitamin B12 100 100 mcg PO DAILY 01/05/18 mcg Tab] Ergocalciferol (Vitamin D2) 50,000 unit PO SAT 01/05/18 [Vitamin D2] Folic Acid 1 mg PO DAILY 01/05/18 Furosemide [Lasix] 20 mg PO BID 01/05/18 Icosapent Ethyl [Vascepa] 2 gm PO Q12 01/05/18 Lisinopril [Zestril] 10 mg PO DAILY 01/05/18 - Allergies Allergies/Adverse Reactions: Allergies Allergy/AdvReac Type Severity Reaction Status Date / Time No Known Allergies Allergy Verified 01/05/18 14:25 Review of Systems ROS Statement: Except As Marked, All Systems Reviewed And Found Negative Constitutional: Positive for: Other (fatigue ) Cardiovascular: Negative for: Chest Pain Respiratory: Negative for: Shortness of Breath Neurological: Negative for: Weakness Physical Exam - Reviewed Nursing Documentation Reviewed: Yes Vital Signs Reviewed: Yes - Physical Exam Appears: Positive for: Non-toxic, No Acute Distress Head Exam: Positive for: ATRAUMATIC, NORMAL INSPECTION, NORMOCEPHALIC Skin: Positive for: Warm, Dry, Pallor Eye Exam: Positive for: EOMI, PERRL, Other (pale conjunctivae) Neck: Positive for: Normal, Painless ROM, Supple Cardiovascular/Chest: Positive for: Regular Rate, Rhythm. Negative for: Murmur Respiratory: Positive for: Normal Breath Sounds. Negative for: Wheezing, Respiratory Distress Gastrointestinal/Abdominal: Positive for: Normal Exam, Soft. Negative for: Tenderness Extremity: Positive for: Normal ROM, Other (psoriatic changes on right forearm). Negative for: Deformity Neurologic/Psych: Positive for: Alert, Oriented. Negative for: Motor/Sensory Deficits - Laboratory Results Result Diagrams: 01/05/18 15:50 01/05/18 15:50 - ECG O2 Sat by Pulse Oximetry: 98 (RA) Pulse Ox Interpretation: Normal Medical Decision Making Medical Decision Makin:16 Impression: increasing fatigue Initial Plan: --Blood type --EKG --CMP --Urine dip --CBC --CXR ----- Scribe Attestation: Documented by Sweta Sy acting as a scribe for Gui Faustin MD Provider Scribe Attestation: All medical record entries made by the Scribe were at my direction and personally dictated by me. I have reviewed the chart and agree that the record accurately reflects my personal performance of the history, physical exam, medical decision making, and the department course for this patient. I have also personally directed, reviewed, and agree with the discharge instructions and di sposition. Disposition - Clinical Impression Clinical Impression: Anemia - Patient ED Disposition Is Patient to be Admitted: Yes - Disposition Disposition Time: 16:54 Condition: FAIR Forms: [facility] (Faroese) - Pt Status Changed To: Hospital Disposition Of: Observation - POA Present On Arrival: None
--- NOTE | 2018-01-05 15:38 | RAD ---
HISTORY: Weakness COMPARISON: 03/12/2017 TECHNIQUE: Chest PA and lateral FINDINGS: LINES AND TUBES: None. LUNG AND PLEURA: The lungs are well inflated and clear. No pleural effusion or pneumothorax. HEART AND MEDIASTINUM: The heart is not enlarged. No aortic atherosclerotic calcification present. The hilar and mediastinal contours are within normal limits. SKELETAL STRUCTURES: The bony structures are within normal limits for the patient's age. VISUALIZED UPPER ABDOMEN: Normal. OTHER FINDINGS: There is a large retrocardiac air-fluid level compatible with a sliding hiatal hernia. IMPRESSION: No active pulmonary disease. Large sliding hiatal hernia.
[2018-01-05 16:04] LABS: BASO # 0.1 K/uL (0.0-0.2); BASO % 0.7 % (0.0-2.0); EOS % 0.2 % (0.0-4.0); LYMPH % 12.1 % (20.0-40.0); MEAN CELL VOLUME 69.5 fl (81.0-99.0); MEAN CORPUSCULAR HEMOGLOBIN 20.1 pg (27.0-31.0); MEAN CORPUSCULAR HGB CONC 28.9 g/dL (33.0-37.0); MEAN PLATELET VOLUME 7.9 fl (7.2-11.7); MONO # 0.5 K/uL (0.0-0.8); MONO % 6.3 % (0.0-10.0); NEUT # 6.8 K/uL (1.8-7.0); NEUT % 80.7 % (50.0-75.0); NRBC % 0.4 % (0.0-0.0); RBC 3.47 Mil/uL (3.80-5.20); RED CELL DISTRIBUTION WIDTH 20.4 % (11.5-14.5); WHITE BLOOD COUNT 8.4 K/uL (4.8-10.8)
[2018-01-05 16:16] LABS: ALB/GLOB RATIO 1.2 (1.0-2.1); ALBUMIN 4.1 g/dL (3.5-5.0); CALCIUM 9.5 mg/dL (8.4-10.2)
[2018-01-05] MEDS ORDERED: Sodium Chloride 0.9% 1,000 ML IV STA (16:53)
[2018-01-05] MEDS ORDERED: Calcium-Vit D 500 mg-200 Units Tab UD PO SCH (21:15)
[2018-01-05] MEDS: Venlafaxine 150 mg ER Cap PO SCH (23:49)
[2018-01-06 03:25] VITALS: RESP 18
[2018-01-06] MEDS ORDERED: Levothyroxine 50 MCG TAB PO SCH (06:30)
[2018-01-06 08:21] LABS: HEMOGLOBIN 10.4 g/dL (12.0-16.0); MEAN CELL VOLUME 73.5 fl (81.0-99.0); MEAN CORPUSCULAR HEMOGLOBIN 23.3 pg (27.0-31.0); MEAN CORPUSCULAR HGB CONC 31.7 g/dL (33.0-37.0); RBC 4.46 Mil/uL (3.80-5.20)
[2018-01-06] MEDS: Venlafaxine 150 mg ER Cap PO SCH (08:30)
[2018-01-06 08:40] LABS: ALB/GLOB RATIO 1.1 (1.0-2.1); ALBUMIN 3.7 g/dL (3.5-5.0); CALCIUM 8.4 mg/dL (8.4-10.2)
--- NOTE | 2018-01-06 11:51 | CP.PCM.HP ---
History of Present Illness - History of Present Illness History of Present Illness: 77 y/o F with a PMHX of Chronic Anemia, Anxiety,CAD, HTN, Hyperlipidemia presented to ED with complaints of fatigue and weakness. Pt has been dealing with anemia for a years. Pt came to the ED this time because she could barely move and found herself with NO energy. Pt was transfused 2 PRBC's overnight, Hgb has increased to from 7 to 10. --Today, pt was seen and examined with Dr Ramos by bedside. Pt reports feeling well, is able to move and walk aroun. Pt afebrile, tolerating PO with NO acute events overnight. PMD: Dr. Lalita Callahan Present on Admission - Present on Admission Any Indicators Present on Admission: No Review of Systems - Constitutional Constitutional: absent: Chills, Fever - EENT Eyes: absent: Change in Vision Nose/Mouth/Throat: absent: Nasal Congestion, Sore Throat, Facial Pain - Cardiovascular Cardiovascular: absent: Chest Pain, Dyspnea, Lightheadedness, Palpitations - Respiratory Respiratory: absent: Cough, Dyspnea - Gastrointestinal Gastrointestinal: absent: Abdominal Pain, Cramping, Diarrhea, Nausea, Vomiting - Genitourinary Genitourinary: absent: Dysuria, Flank Pain, Urinary Frequency Past Patient History - Infectious Disease Hx of Infectious Diseases: None - Past Medical History & Family History Past Medical History?: Yes - Past Social History Smoking Status: Former Smoker - CARDIAC Hx Cardiac Disorders: Yes Hx Hypercholesterolemia: Yes Hx Hypertension: Yes - PULMONARY Hx Respiratory Disorders: No - NEUROLOGICAL Hx Neurological Disorder: No - HEENT Hx HEENT Problems: Yes Hx Cataracts: Yes - RENAL Hx Chronic Kidney Disease: Yes - ENDOCRINE/METABOLIC Hx Endocrine Disorders: Yes Hx Hypothyroidism: Yes - HEMATOLOGICAL/ONCOLOGICAL Hx Blood Disorders: Yes (anemia) Hx AIDS: No Hx Anemia: Yes Hx Human Immunodeficiency Virus (HIV): No - INTEGUMENTARY Hx Dermatological Problems: Yes Hx Psoriasis: Yes - MUSCULOSKELETAL/RHEUMATOLOGICAL Hx Musculoskeletal Disorders: Yes Hx Falls: No - GASTROINTESTINAL Hx Gastrointestinal Disorders: No - GENITOURINARY/GYNECOLOGICAL Hx Genitourinary Disorders: No - PSYCHIATRIC Hx Psychophysiologic Disorder: Yes Hx Anxiety: Yes Hx Depression: Yes Hx Substance Use: No - SURGICAL HISTORY Hx Surgeries: Yes Hx Tonsillectomy: Yes - ANESTHESIA Hx Anesthesia: Yes Hx Anesthesia Reactions: No Meds Allergies/Adverse Reactions: Allergies Allergy/AdvReac Type Severity Reaction Status Date / Time No Known Allergies Allergy Verified 01/05/18 14:25 Physical Exam - Constitutional Appears: Well, No Acute Distress - Head Exam Head Exam: ATRAUMATIC, NORMAL INSPECTION - Eye Exam Eye Exam: EOMI, Normal appearance - ENT Exam ENT Exam: Mucous Membranes Moist - Neck Exam Neck exam: Positive for: Full Rom, Normal Inspection. Negative for: Lymphadenopathy - Respiratory Exam Respiratory Exam: NORMAL BREATHING PATTERN. absent: Rales, Rhonchi, Wheezes - Cardiovascular Exam Cardiovascular Exam: REGULAR RHYTHM, +S1, +S2 - GI/Abdominal Exam GI & Abdominal Exam: Normal Bowel Sounds, Soft. absent: Guarding, Rebound, Tenderness - Extremities Exam Extremities exam: Positive for: full ROM. Negative for: calf tenderness, pedal edema - Back Exam Back exam: absent: CVA tenderness (L), CVA tenderness (R) - Neurological Exam Neurological exam: Alert, Oriented x3 Results - Vital Signs Recent Vital Signs: Last Vital Signs Temp 99.6 F 01/06/18 07:57 Pulse 76 01/06/18 09:00 Resp 18 01/06/18 07:57 BP 155/72 H 01/06/18 08:30 Pulse Ox 98 01/06/18 07:57 - Labs Result Diagrams: 01/06/18 08:13 01/06/18 08:13 Labs: Laboratory Results - last 24 hr 01/05/18 01/05/18 01/05/18 15:50 15:50 16:15 WBC 8.4 RBC 3.47 L Hgb 7.0 L D Hct 24.1 L MCV 69.5 L D MCH 20.1 L MCHC 28.9 L RDW 20.4 H Plt Count 487 H D MPV 7.9 Neut % (Auto) 80.7 H Lymph % (Auto) 12.1 L Mcdonough % (Auto) 6.3 Eos % (Auto) 0.2 Baso % (Auto) 0.7 Neut # (Auto) 6.8 Lymph # (Auto) 1.0 Mcdonough # (Auto) 0.5 Eos # (Auto) 0.0 Baso # (Auto) 0.1 Retic Count Sodium 139 Potassium 3.9 Chloride 101 Carbon Dioxide 21 L Anion Gap 21 H BUN 14 Creatinine 1.2 Est GFR ( Amer) 53 Est GFR (Non-Af Amer) 43 Random Glucose 116 H Calcium 9.5 Total Bilirubin 0.2 AST 24 ALT 20 Alkaline Phosphatase 55 Total Protein 7.6 Albumin 4.1 Globulin 3.5 Albumin/Globulin Ratio 1.2 Blood Type A POSITIVE Antibody Screen Negative Crossmatch See Detail BBK History Checked Patient has bt 01/06/18 01/06/18 08:13 08:13 WBC 8.0 RBC 4.46 Hgb 10.4 L D Hct 32.8 L MCV 73.5 L D MCH 23.3 L MCHC 31.7 L RDW 24.0 H Plt Count 377 D MPV Neut % (Auto) Lymph % (Auto) Mcdonough % (Auto) Eos % (Auto) Baso % (Auto) Neut # (Auto) Lymph # (Auto) Mcdonough # (Auto) Eos # (Auto) Baso # (Auto) Retic Count 2.3 H Sodium 139 Potassium 3.8 Chloride 104 Carbon Dioxide 23 Anion Gap 16 BUN 16 Creatinine 1.2 Est GFR ( Amer) 53 Est GFR (Non-Af Amer) 43 Random Glucose 110 H Calcium 8.4 Total Bilirubin 1.0 AST 21 ALT 24 Alkaline Phosphatase 55 Total Protein 7.0 Albumin 3.7 Globulin 3.2 Albumin/Globulin Ratio 1.1 Blood Type Antibody Screen Crossmatch BBK History Checked Assessment & Plan - Assessment and Plan (Free Text) Assessment: 77 y/o F with a PMHx of chronic anemia was admitted for evaluation and management of symptomatic anemia. (Hgb 7.0 yesterday) PLAN: --2 PRBC's administered overnight. --Repeated CBC: Hgb 10.4 --Afebrile, vital signs are stable --Improvement of fatigue and weakness. --D/C'ed home with intructions to f/u with Dr Young, hematology. (Information printed and given to patient) Case discussed with Dr Ramos. GTolentino PGY-2 - Date & Time Date: 01/06/18 Time: 11:56
[2018-01-06 11:52] VITALS: BP 136/72; PULSE 82; TEMP 98.3; O2SAT 96
--- NOTE | 2018-01-06 13:37 | CARD ---
APPROVED REPORT Date of service: 01/05/2018 EKG Measurement Heart [id number] <Conclusion> Normal sinus rhythm Nonspecific ST and T wave abnormality Abnormal ECG
== END 2018-01-06 14:56 | disposition home or self-care (01) ==
LOC: H.ER 14:09 → H.ERHOLD 16:53 → H.TEL 18:33
PROVIDERS: ADMIT Family Medicine; ATTEND Family Medicine
DX: D64.9 Anemia, unspecified (principal); E03.9 Hypothyroidism, unspecified; I25.10 Atherosclerotic heart disease of native coronary artery without angina pectoris; I12.9 Hypertensive chronic kidney disease with stage 1 through stage 4 chronic kidney disease, or unspecified chronic kidney disease; N18.9 Chronic kidney disease, unspecified; E78.5 Hyperlipidemia, unspecified; F41.9 Anxiety disorder, unspecified; E78.00 Pure hypercholesterolemia, unspecified; Z87.891 Personal history of nicotine dependence; Z79.82 Long term (current) use of aspirin
CPT/HCPCS: 36415; 36430; 71046; 80053; 85025; 85027; 85044; 86850; 86900; 86920; 93005; 99285; G0378; J7030; P9051

== ENCOUNTER 2018-08-02 18:41 | Observation (INO) | payer MEDICARE, OTHER ==
[2018-08-02 18:41] VITALS: BMI 26.5
[2018-08-02] MEDS ORDERED: DiphenhydrAMINE 50 mg/ml Inj IVP STA (19:37)
[2018-08-02] MEDS ORDERED: DiphenhydrAMINE 50 mg/ml Inj ONE (20:16)
--- NOTE | 2018-08-02 20:23 | ED PDOC ---
HPI: Allergic Reaction Time Seen by Provider: 08/02/18 19:03 Chief Complaint (Nursing): Allergic Reaction Chief Complaint (Provider): Allergic Reaction History Per: Patient History/Exam Limitations: no limitations Onset/Duration Of Symptoms: Hrs Current Symptoms Are (Timing): Still Present Additional Complaint(s): 78 y/o female with a PMHx of HTN, Hypercholesterolemia and Anxiety presents to the ED for evaluation of an allergic reaction. Patient reports of taking Nap roxen for the first time today at approximately 3 o'clock today for a headache. Patient states she was told naproxen was to be used for pain. Patient notes of developing a itchy rash to the hands, arms and legs about 15 minutes after taking the medication associated with nausea, lightheadedness and generalized weakness. Otherwise, patient denies throat itching, swelling, chest tightness, outright vomiting and history of allergies. Patient additionally denies taking any medications for symptoms. Of note, patient has a history of anemia and was hospitalized for this on 05/15/2018. PMD: Andrea Kim Past Medical History Reviewed: Historical Data, Nursing Documentation, Vital Signs Vital Signs: Last Vital Signs Temp 97.8 F 08/02/18 18:43 Pulse 70 08/02/18 18:43 Resp 16 08/02/18 18:43 BP 117/57 L 08/02/18 18:43 Pulse Ox 95 08/02/18 18:43 Primary Care Provider: Andrea Kim - Medical History PMH: Anemia, Anxiety, CAD (catherization last month), Depression, Fractures (left wrist), HTN, Hypercholesterolemia, Hypothyroidism, Chronic Kidney Disease Denies: HIV - Surgical History Surgical History: Tonsillectomy - Family History Family History: States: No Known Family Hx - Social History Current smoker - smoking cessation education provided: No Alcohol: None Drugs: Denies - Home Medications Home Medications: Ambulatory Orders Medication Instructions Recorded Venlafaxine [Effexor XR] 150 mg PO BID 05/09/14 ALPRAZolam [Xanax] 1 mg PO BID 03/12/17 Atenolol [Tenormin] 25 mg PO BID 03/12/17 Icosapent Ethyl [Vascepa] 2 cap PO DAILY 01/05/18 Ferric Citrate [Auryxia] 210 mg PO TID 05/16/18 Levothyroxine [Synthroid] 50 mcg PO DAILY 05/16/18 Mirtazapine [Remeron] 15 mg PO HS 05/16/18 Omeprazole Magnesium [Prilosec Otc] 20 mg PO DAILY 05/16/18 amLODIPine [Norvasc] 10 mg PO DAILY #30 tab 05/19/18 Cholecalciferol (Vitamin D3) 50,000 unit PO QWK 08/03/18 [Vitamin D3] Cyanocobalamin [Vitamin B12 100 1 tab PO DAILY 08/03/18 mcg Tab] Losartan Potassium 1 tab PO DAILY 08/03/18 Rosuvastatin Calcium [Crestor] 10 mg PO DAILY 08/03/18 - Allergies Allergies/Adverse Reactions: Allergies Allergy/AdvReac Type Severity Reaction Status Date / Time naproxen Allergy RASH Verified 08/02/18 18:43 Review of Systems ROS Statement: Except As Marked, All Systems Reviewed And Found Negative Constitutional: Positive for: Weakness Gastrointestinal: Positive for: Nausea Skin: Positive for: Rash Neurological: Positive for: Other (lightheadedness) Physical Exam - Reviewed Nursing Documentation Reviewed: Yes Vital Signs Reviewed: Yes - Physical Exam Appears: Positive for: No Acute Distress (but tired) Head Exam: Positive for: ATRAUMATIC, NORMOCEPHALIC Skin: Positive for: Pallor (mild), Rash (psoriatic rash to her right) Eye Exam: Positive for: EOMI, PERRL ENT: Negative for: Moist Mucous Membranes (dry mucous membranes) Neck: Positive for: Painless ROM, Supple Cardiovascular/Chest: Positive for: Regular Rate, Rhythm. Negative for: Murmur Respiratory: Positive for: Normal Breath Sounds. Negative for: Wheezing Gastrointestinal/Abdominal: Positive for: Soft. Negative for: Tenderness, Mass, Guarding, Rebound Back: Positive for: Normal Inspection. Negative for: Vertebral Tenderness Extremity: Positive for: Normal ROM, Other (Erythematous wheels isolated to her lower legs, Erythema of palms. no rash) Lymphatic: Negative for: Adenopathy Neurological/Psych: Positive for: Awake, Alert. Negative for: Motor/Sensory Deficits - Laboratory Results Result Diagrams: 08/03/18 10:20 08/03/18 10:20 - ECG O2 Sat by Pulse Oximetry: 95 (RA) Pulse Ox Interpretation: Normal - Progress ED Course And Treament: Time: 1939 Impression: Allergic reaction with gastritis Differentials include but not limited to anemia and pancreatitis. Plan: -- Type and Screen -- EKG -- CMP -- Lipase -- Magnesium -- Phosphorus -- ED Urine Dipstick -- CBC with Differentials -- PTT -- Prothrombin Time -- Benadryl 50 mg IVP -- Pepcid 40 mg IVP -- Zofran Inj 4 mg IVP 0 On reevaluation pt's allergy symptoms resolved but she reports increasing abdominal pain, has diffuse nonlocalizable tenderness. Reviewed previous chart and CT performed in May demonstrated colitis. CT ordered for further evalu ation [id number] Campos pending CT. Scribe Attestation: Documented by Luis Alcazar, acting as a scribe Cory Rose MD. Provider Scribe Attestation: All medical record entries made by the Scribe were at my direction and personally dictated by me. I have reviewed the chart and agree that the record accurately reflects my personal performance of the history, physical exam, medical decision making, and the department course for this patient. I have also personally directed, reviewed, and agree with the discharge instructions and disposition. Disposition - Clinical Impression Clinical Impression: Acute allergic reaction, Abdominal pain - Disposition Disposition Time: 23:00 Condition: FAIR
[2018-08-02 20:48] LABS: BASO % 0.3 % (0.0-2.0); EOS # 0.1 K/uL (0.0-0.7); EOS % 0.5 % (0.0-4.0); HEMOGLOBIN 14.3 g/dL (12.0-16.0); LYMPH # 0.9 K/uL (1.0-4.3); LYMPH % 7.4 % (20.0-40.0); MEAN CELL VOLUME 86.3 fl (81.0-99.0); MEAN CORPUSCULAR HEMOGLOBIN 28.1 pg (27.0-31.0); MEAN CORPUSCULAR HGB CONC 32.5 g/dL (33.0-37.0); MEAN PLATELET VOLUME 7.8 fl (7.2-11.7); MONO # 0.7 K/uL (0.0-0.8); MONO % 5.4 % (0.0-10.0); NEUT # 10.9 K/uL (1.8-7.0); NEUT % 86.4 % (50.0-75.0); PLATELET COUNT 360 K/uL (130-400); RBC 5.11 Mil/uL (3.80-5.20); RED CELL DISTRIBUTION WIDTH 19.8 % (11.5-14.5); WHITE BLOOD COUNT 12.6 K/uL (4.8-10.8)
[2018-08-02 20:51] LABS: INR 1.1; PROTHROMBIN TIME 13.1 Seconds (9.8-13.1)
[2018-08-02 20:54] LABS: PARTIAL THROMBOPLASTIN TIME 31.7 Seconds (25.6-37.1)
[2018-08-02 21:00] LABS: ALB/GLOB RATIO 1.3 (1.0-2.1); CALCIUM 9.3 mg/dL (8.4-10.2)
[2018-08-02 21:43] LABS: ANISOCYTOSIS SLIGHT; LYMPHOCYTE 5 % (20-50); MONOCYTE 7 % (0-10); NEUTROPHIL 88 % (42-75); PLATELET ESTIMATE NORMAL (NORMAL); TOTAL CELLS COUNTED 100
[2018-08-02 21:44] LABS: POIKILOCYTOSIS SLIGHT
[2018-08-02] MEDS ORDERED: Iohexol 240 (50 ml) PO STA (21:56)
[2018-08-02] MEDS ORDERED: Iohexol 240 (50 ml) ONE (21:58)
--- NOTE | 2018-08-02 23:29 | ED PDOC ---
- Laboratory Results Result Diagrams: 08/03/18 10:20 08/03/18 10:20 Lab Results: PT 13.1 Seconds (9.8-13.1) 08/02/18 20:35 INR 1.1 08/02/18 20:35 APTT 31.7 Seconds (25.6-37.1) 08/02/18 20:35 Total Bilirubin 0.3 mg/dl (0.2-1.3) 08/02/18 20:35 AST 29 U/L (14-36) 08/02/18 20:35 ALT 24 U/L (9-52) 08/02/18 20:35 Alkaline Phosphatase 68 U/L (38-126) 08/02/18 20:35 Total Protein 7.1 G/DL (6.3-8.2) 08/02/18 20:35 Albumin 4.0 g/dL (3.5-5.0) 08/02/18 20:35 Globulin 3.1 gm/dL (2.2-3.9) 08/02/18 20:35 Albumin/Globulin Ratio 1.3 (1.0-2.1) 08/02/18 20:35 Lipase 96 U/L (23-300) 08/02/18 20:35 - ECG O2 Sat by Pulse Oximetry: 95 (RA) Medical Decision Making Medical Decision Making: Time: 2300 --Patient is endorsed to provider by Dr. Rose, pending CT ABD/pelvis results and re-evaluation. Time: 105 --CT ABD/pelvis FINDINGS: Minimal bilateral basilar subsegmental atelectatic pulmonary changes. Mild cardiomegaly. Moderate sliding hiatal hernia. Sigmoid diverticulosis. Uncomplicated changes of acute sigmoid diverticulitis without perforation or abscess formation. Normal unenhanced liver. Normal gallbladder and extrahepatic biliary system. Normal unenhanced spleen. Normal pancreas. Normal bilateral adrenal glands. Normal size of the right kidney. There is no right renal mass. There are no right renal calculi. There is no right hydronephrosis. Normal visualized right ureter. Normal size of the left kidney. There is no left renal mass. There are no left renal calculi. There is no left hydronephrosis. Normal visualized left ureter. Normal visualized stomach. Normal small intestine. The appendix is visualized and appears normal. There is no demonstrated peritoneal fluid. Calcified atheromatous plaques of the abdominal aorta. Normal inferior vena cava. Normal retroperitoneum. Normal urinary bladder. There is no pelvic mass lesion or lymphadenopathy. There is no pelvic fluid. Normal abdominal wall. Mild benign chronic compression deformity of T12 vertebral body. IMPRESSION: Minimal bilateral basilar subsegmental atelectatic pulmonary changes. Mild cardiomegaly. Moderate sliding hiatal hernia. Sigmoid diverticulosis. Uncomplicated changes of acute sigmoid diverticulitis without perforation or abscess formation. Time: 0135 --Upon provider re-evaluation, patient will require inpatient admission for further management of diverticulitis. Case referred to Dr. Ramos, medical services. Findings and plan were discussed with patient who verbalizes understanding. Counseling was provided and all questions were answered regarding diagnosis. There is agreement to discharge plan. Return precautions discussed. Clinical Impression: diverticulitis Scribe Attestation: Documented by Lila Greenwood, acting as a scribe for Isiah Campos MD. Provider Scribe Attestation: All medical record entries made by the Scribe were at my direction and per sonally dictated by me. I have reviewed the chart and agree that the record accurately reflects my personal performance of the history, physical exam, medical decision making, and the department course for this patient. I have also personally directed, reviewed, and agree with the discharge instructions and disposition. Disposition Counseled Patient/Family Regarding: Studies Performed, Diagnosis - Clinical Impression Clinical Impression: Acute allergic reaction, Abdominal pain - POA Present On Arrival: None - Disposition Disposition: Admitted as In-Patient Disposition Time: 01:35 Condition: FAIR
[2018-08-03] MEDS ORDERED: Ciprofloxacin 400mg/200ml D5W 400 MG/200 ML BAG IV STA (01:27)
[2018-08-03] MEDS ORDERED: metroNIDAZOLE 500mg/100ml NS 100 ML IVPB STA (01:27)
[2018-08-03] MEDS ORDERED: metroNIDAZOLE 500mg/100ml NS 100 ML IVPB ONE (01:36)
[2018-08-03 10:43] LABS: HEMOGLOBIN 12.9 g/dL (12.0-16.0); MEAN CELL VOLUME 85.6 fl (81.0-99.0); MEAN CORPUSCULAR HEMOGLOBIN 28.3 pg (27.0-31.0); RBC 4.58 Mil/uL (3.80-5.20); RED CELL DISTRIBUTION WIDTH 18.4 % (11.5-14.5); WHITE BLOOD COUNT 5.9 K/uL (4.8-10.8)
[2018-08-03 10:59] LABS: CALCIUM 8.8 mg/dL (8.4-10.2)
--- NOTE | 2018-08-03 11:35 | CARD ---
APPROVED REPORT Date of service: 08/02/2018 EKG Measurement Heart [id number] <Conclusion> Normal sinus rhythm ST & T wave abnormality, consider anterolateral ischemia Abnormal ECG
--- NOTE | 2018-08-03 11:58 | CT ---
Date of service: 08/02/2018 PROCEDURE: CT Abdomen and Pelvis with contrast HISTORY: abdominal pain COMPARISON: None. TECHNIQUE: Contrast dose: Radiation dose: Total exam DLP = 370.73 mGy-cm. This CT exam was performed using one or more of the following dose reduction techniques: Automated exposure control, adjustment of the mA and/or kV according to patient size, and/or use of iterative reconstruction technique. FINDINGS: LOWER THORAX: A small fat only containing left Bochdalek hernia noted unchanged. Mammilation an eventration of the right hemidiaphragm containing a portion of the liver-appearance unchanged. LIVER: As above regarding the right hemidiaphragm. No gross lesion or ductal dilatation. GALLBLADDER AND BILE DUCTS: Unremarkable. Currently the gallbladder is not contracted. PANCREAS: Unremarkable. No gross lesion or ductal dilatation. SPLEEN: Unremarkable. ADRENALS: Unremarkable. No mass. KIDNEYS AND URETERS: Unremarkable. No hydronephrosis. No solid mass. VASCULATURE: No aortic aneurysm. There is presence of aortic atherosclerotic calcification without significant appearing mural plaque on cross sectional studies. Bilateral hemipelvic phleboliths BOWEL: Redundant rectosigmoid colon studded with innumerable diverticuli and incomplete gas-filled lumen giving a a appearance compatible with diffuse circumferential mural thickening here. No pericolonic inflammatory changes to suggest concomitant diverticulitis. The mural changes here can be seen with circular muscle hypertrophy associated with diverticular disease. No significant changes appreciated. No gross pericolonic suspect lymph nodes seen. Given given this persistent mural appearance concomitant underlying neoplastic colonic changes here are not the excluded-benign circular muscle hypertrophy changes are favored. APPENDIX: Normal appendix. PERITONEUM: Unremarkable. No free fluid. No free air. LYMPH NODES: Unremarkable. No enlarged lymph nodes. BLADDER: Unremarkable. REPRODUCTIVE: In this understood postmenopausal 78-year-old patient. The uterine fundus is focally prominent possibility of a fundal fibroid here possibly even exophytic is 1 consideration. No change in this appearance is noted. The anterior superior aspect of this prominent uterine fundal appearance is contiguous with the left rectus muscle overseas axis series 2, image 73 and sagittal series 602, image 87. The the elongated length of the uterus is believed atypically greater/elongated than expected for this 78-year-old patient. BONES: No acute fracture. OTHER FINDINGS: Large hiatal hernia IMPRESSION: Re-noted is a very large hiatal hernia. A small fat only containing Bochdalek's hernia is noted as well these findings are unchanged. Extensive rectosigmoid colonic diverticulosis with the favored circular muscle hypertrophy changes. No CT suggestion of acute cholecystitis here. An element of concomitant colitis here would not be a excluded. Circular muscle hypertrophy is favored over neoplastic change; albeit the latter cannot be entirely excluded given these mural changes. Appearance is similar. Small or large bowel obstruction seen. No acute appendicitis. Atypically prominent uterine fundus unchanged. A fundal fibroid is a consideration. Concordant results (preliminary interpretation) provided by [facility].
[2018-08-03] MEDS ORDERED: CYANOCOBALAMIN PO SCH (12:30)
[2018-08-03] MEDS ORDERED: CHOLECALCIFEROL 50000 UNIT PO SCH (12:30)
[2018-08-03] MEDS: metroNIDAZOLE 500mg/100ml NS 100 ML IVPB SCH ×2 (14:05→21:21)
[2018-08-03] MEDS ORDERED: Ergocalciferol 50,000 Intl Units Cap PO SCH (15:30)
[2018-08-03] MEDS: Ciprofloxacin 400mg/200ml D5W 400 MG/200 ML BAG IVPB SCH ×2 (15:35→21:22)
[2018-08-03] MEDS: Levothyroxine 50 MCG TAB PO SCH (17:02)
[2018-08-03] MEDS: Venlafaxine 150 mg ER Cap PO SCH (17:03)
--- NOTE | 2018-08-03 18:36 | CP.PCM.HP ---
Past Patient History - Infectious Disease Hx of Infectious Diseases: None - Past Medical History & Family History Past Medical History?: Yes - Past Social History Alcohol: None Drugs: Denies - CARDIAC Hx Hypercholesterolemia: Yes Hx Hypertension: Yes - PULMONARY Hx Respiratory Disorders: No - NEUROLOGICAL Hx Neurological Disorder: No - HEENT Hx HEENT Problems: Yes Hx Cataracts: Yes - RENAL Hx Chronic Kidney Disease: Yes - ENDOCRINE/METABOLIC Hx Hypothyroidism: Yes - HEMATOLOGICAL/ONCOLOGICAL Hx Anemia: Yes Hx Human Immunodeficiency Virus (HIV): No - INTEGUMENTARY Hx Dermatological Problems: Yes Hx Psoriasis: Yes - MUSCULOSKELETAL/RHEUMATOLOGICAL Hx Fractures: Yes (left wrist) - GASTROINTESTINAL Hx Gastrointestinal Disorders: No - GENITOURINARY/GYNECOLOGICAL Hx Genitourinary Disorders: No - PSYCHIATRIC Hx Anxiety: Yes Hx Depression: Yes - SURGICAL HISTORY Hx Tonsillectomy: Yes - ANESTHESIA Hx Anesthesia: Yes Hx Anesthesia Reactions: No Meds Allergies/Adverse Reactions: Allergies Allergy/AdvReac Type Severity Reaction Status Date / Time naproxen Allergy RASH Verified 08/02/18 18:43 Results - Vital Signs Recent Vital Signs: Last Vital Signs Temp 98.6 F 08/03/18 15:57 Pulse 73 08/03/18 15:57 Resp 20 08/03/18 15:57 BP 125/75 08/03/18 15:57 Pulse Ox 99 08/03/18 15:57 - Labs Result Diagrams: 08/03/18 10:20 08/03/18 10:20 Labs: Laboratory Results - last 24 hr 08/02/18 08/02/18 08/02/18 20:35 20:35 20:35 WBC 12.6 H D RBC 5.11 Hgb 14.3 Hct 44.1 MCV 86.3 MCH 28.1 MCHC 32.5 L RDW 19.8 H Plt Count 360 MPV 7.8 Neut % (Auto) 86.4 H Lymph % (Auto) 7.4 L Kinney % (Auto) 5.4 Eos % (Auto) 0.5 Baso % (Auto) 0.3 Neut # (Auto) 10.9 H Lymph # (Auto) 0.9 L Kinney # (Auto) 0.7 Eos # (Auto) 0.1 Baso # (Auto) 0.0 Neutrophils % (Manual) 88 H Lymphocytes % (Manual) 5 L Monocytes % (Manual) 7 Platelet Estimate Normal Poikilocytosis (manual Slight Anisocytosis (manual) Slight PT 13.1 INR 1.1 APTT 31.7 Sodium 137 Potassium 4.5 Chloride 100 Carbon Dioxide 28 Anion Gap 14 BUN 25 H Creatinine 1.3 H Est GFR ( Amer) 48 Est GFR (Non-Af Amer) 40 Random Glucose 118 H Calcium 9.3 Phosphorus 5.2 H Magnesium 2.0 Total Bilirubin 0.3 AST 29 ALT 24 Alkaline Phosphatase 68 Total Protein 7.1 Albumin 4.0 Globulin 3.1 Albumin/Globulin Ratio 1.3 Lipase 96 Blood Type Antibody Screen BBK History Checked 08/02/18 08/03/18 08/03/18 20:35 10:20 10:20 WBC 5.9 D RBC 4.58 Hgb 12.9 Hct 39.2 MCV 85.6 MCH 28.3 MCHC 33.0 RDW 18.4 H Plt Count 312 MPV Neut % (Auto) Lymph % (Auto) Kinney % (Auto) Eos % (Auto) Baso % (Auto) Neut # (Auto) Lymph # (Auto) Kinney # (Auto) Eos # (Auto) Baso # (Auto) Neutrophils % (Manual) Lymphocytes % (Manual) Monocytes % (Manual) Platelet Estimate Poikilocytosis (manual Anisocytosis (manual) PT INR APTT Sodium 137 Potassium 4.0 Chloride 99 Carbon Dioxide 28 Anion Gap 14 BUN 21 H Creatinine 1.2 Est GFR ( Amer) 52 Est GFR (Non-Af Amer) 43 Random Glucose 115 H Calcium 8.8 Phosphorus Magnesium Total Bilirubin AST ALT Alkaline Phosphatase Total Protein Albumin Globulin Albumin/Globulin Ratio Lipase Blood Type A POSITIVE Antibody Screen Negative BBK History Checked Patient has bt
[2018-08-03] MEDS ORDERED: Ciprofloxacin 400mg/200ml D5W 400 MG/200 ML BAG IVPB SCH (21:00)
[2018-08-04] MEDS: Levothyroxine 50 MCG TAB PO SCH (05:33)
[2018-08-04 07:57] VITALS: RESP 20
[2018-08-04] MEDS: Venlafaxine 150 mg ER Cap PO SCH (09:32)
[2018-08-04] MEDS: metroNIDAZOLE 500mg/100ml NS 100 ML IVPB SCH (09:33)
[2018-08-04] MEDS: Ciprofloxacin 400mg/200ml D5W 400 MG/200 ML BAG IVPB SCH (09:34)
[2018-08-04 11:55] VITALS: BP 101/63; PULSE 71; TEMP 97.8; O2SAT 96
[2018-08-04] MEDS ORDERED: Pantoprazole 40 mg EC Tab PO SCH (12:45)
--- NOTE | 2018-08-04 14:04 | CP.PCM.PN ---
Subjective - Date & Time of Evaluation Date of Evaluation: 08/04/18 Time of Evaluation: 14:04 - Subjective Subjective: no overnight events Objective - Vital Signs/Intake and Output Vital Signs (last 24 hours): Temp Pulse Resp BP Pulse Ox 97.8 F 71 20 101/63 96 08/04/18 11:55 08/04/18 11:55 08/04/18 11:55 08/04/18 11:55 08/04/18 11:55 - Medications Medications: Current Medications Alprazolam (Xanax) 1 mg PO BID [facility] Last Admin: 08/04/18 09:31 Dose: 1 mg Amlodipine Besylate (Norvasc) 10 mg PO DAILY [facility] Last Admin: 08/04/18 09:31 Dose: 10 mg Atenolol (Tenormin) 25 mg PO BID [facility] Last Admin: 08/04/18 09:31 Dose: 25 mg Atorvastatin Calcium (Lipitor) 20 mg PO HS [facility] Last Admin: 08/03/18 21:20 Dose: 20 mg Ergocalciferol (Drisdol 50,000 Intl Units Cap) 1 cap PO Q7D [facility] Last Admin: 08/03/18 17:03 Dose: 1 cap Home Med (Cyanocobalamin [Vitamin B12 100 Mcg Tab]) 1 tab PO DAILY [facility] Last Admin: 08/03/18 17:09 Dose: Not Given Metronidazole (Flagyl 500mg/100ml Ns) 100 mls @ 100 mls/hr IVPB Q12 [facility]; Helen col Last Admin: 08/04/18 09:33 Dose: 100 mls/hr Ciprofloxacin (Cipro 400mg/200ml Dsw) 400 mg in 200 mls @ 200 mls/hr IVPB Q12 [facility]; Protocol Last Admin: 08/04/18 09:34 Dose: 200 mls/hr Levothyroxine Sodium (Synthroid) 50 mcg PO DAILY@0630 [facility] Last Admin: 08/04/18 05:33 Dose: 50 mcg Losartan Potassium (Cozaar) 50 mg PO DAILY [facility] Last Admin: 08/04/18 09:32 Dose: 50 mg Mirtazapine (Remeron) 15 mg PO HS [facility] Last Admin: 08/03/18 21:20 Dose: 15 mg Pantoprazole Sodium (Protonix Ec Tab) 40 mg PO DAILY [facility] Venlafaxine HCl (Effexor Xr) 150 mg PO BID [facility] Last Admin: 08/04/18 09:32 Dose: 150 mg - Labs Labs: 08/03/18 10:20 08/03/18 10:20 PT 13.1 Seconds (9.8-13.1) 08/02/18 20:35 INR 1.1 08/02/18 20:35 APTT 31.7 Seconds (25.6-37.1) 08/02/18 20:35 - Head Exam Head Exam: NORMOCEPHALIC - Neck Exam Neck Exam: Normal Inspection - Respiratory Exam Respiratory Exam: Clear to Ausculation Bilateral, NORMAL BREATHING PATTERN - Cardiovascular Exam Cardiovascular Exam: REGULAR RHYTHM - GI/Abdominal Exam GI & Abdominal Exam: Soft, Normal Bowel Sounds Assessment and Plan - Assessment and Plan (Free Text) Assessment: 78 yo female with diverticulosis/litis abx adat colonoscopy in 6-8 weeks
--- NOTE | 2018-08-05 01:30 | CON ---
DATE: 08/03/2018 REFERRING PHYSICIAN: Andrea Kim MD REASON FOR CONSULTATION: Abdominal pain. HISTORY OF PRESENT ILLNESS: This is a very isaiah 78-year-old female with past medical history which includes hypercholesterolemia, hypertension, and chronic kidney disease who comes in with history of abdominal pain and discomfort for the past three or four days. The pain is in the left lower quadrant that has improved since . No fevers or chills. No nausea or vomiting. Currently, lying in bed comfortable, in no apparent distress. PAST MEDICAL HISTORY: As above. PAST SURGICAL HISTORY: As above. MEDICATIONS: Have been reviewed. REVIEW OF SYSTEMS: All other systems have been reviewed and negative apart from the HPI. PHYSICAL EXAMINATION: VITAL SIGNS: Here in the hospital are grossly unremarkable. GENERAL: Pleasant elderly appearing female, lying in bed comfortably, in no apparent distress.. HEENT: Head: Normocephalic and atraumatic. Eyes: Pupils are equal and reactive to light bilaterally. No conjunctival pallor or icterus. NECK: Supple. Normal range of motion. No lymph nodes appreciated. LUNGS: Coarse breath sounds bilaterally. HEART: S1 and S2, regular rate and rhythm. No murmurs appreciated. ABDOMEN: Soft, nontender. Bowel sounds present. No rebound. No guarding. Discomfort in the left lower quadrant. RECTAL: Deferred. EXTREMITIES: Pulse felt bilaterally. SKIN: Warm, dry, and intact. NEUROLOGICAL: Alert and oriented x3. LABORATORY DATA: Labs and radiology have been reviewed. WBC is down to 5.9, hemoglobin is stable. CAT scan of the abdomen and the pelvis demonstrates diverticulosis with some diverticulitis in the left lower quadrant. ASSESSMENT AND PLAN: This is a 78-year-old female with diverticulitis. From a gastrointestinal standpoint, antibiotics for now. Advance diet as tolerated. Discharge planning. Will need a colonoscopy in 6 to 8 weeks, no later. For now, we will follow up with you. Thank you for the consult. Everett Alan MD/ PhD cc: MD Andrea Baldwin MD [facility] # [id number]
--- NOTE | 2018-08-07 08:37 | CP.PCM.DIS ---
Provider - Provider Date of Admission: 08/03/18 01:26 Attending physician: Andrea Kim MD Consults: 08/03/18 11:13 Gastroenterology Consult Routine Comment: Consulting Provider: Everett Alan Consulting Physician: Everett Alan Reason for Consult: acute sigmoid diverticulitis Time Spent in preparation of Discharge (in minutes): 30 Hospital Course - Lab Results Lab Results: Most Recent Lab Values WBC 5.9 K/uL (4.8-10.8) D 08/03/18 10:20 RBC 4.58 Mil/uL (3.80-5.20) 08/03/18 10:20 Hgb 12.9 g/dL (12.0-16.0) 08/03/18 10:20 Hct 39.2 % (34.0-47.0) 08/03/18 10:20 MCV 85.6 fl (81.0-99.0) 08/03/18 10:20 MCH 28.3 pg (27.0-31.0) 08/03/18 10:20 MCHC 33.0 g/dL (33.0-37.0) 08/03/18 10:20 RDW 18.4 % (11.5-14.5) H 08/03/18 10:20 Plt Count 312 K/uL (130-400) 08/03/18 10:20 MPV 7.8 fl (7.2-11.7) 08/02/18 20:35 Neut % (Auto) 86.4 % (50.0-75.0) H 08/02/18 20:35 Lymph % (Auto) 7.4 % (20.0-40.0) L 08/02/18 20:35 [place] % (Auto) 5.4 % (0.0-10.0) 08/02/18 20:35 Eos % (Auto) 0.5 % (0.0-4.0) 08/02/18 20:35 Baso % (Auto) 0.3 % (0.0-2.0) 08/02/18 20:35 Neut # (Auto) 10.9 K/uL (1.8-7.0) H 08/02/18 20:35 Lymph # (Auto) 0.9 K/uL (1.0-4.3) L 08/02/18 20:35 [place] # (Auto) 0.7 K/uL (0.0-0.8) 08/02/18 20:35 Eos # (Auto) 0.1 K/uL (0.0-0.7) 08/02/18 20:35 Baso # (Auto) 0.0 K/uL (0.0-0.2) 08/02/18 20:35 Neutrophils % (Manual) 88 % (42-75) H 08/02/18 20:35 Lymphocytes % (Manual) 5 % (20-50) L 08/02/18 20:35 Monocytes % (Manual) 7 % (0-10) 08/02/18 20:35 Platelet Estimate Normal (NORMAL) 08/02/18 20:35 Poikilocytosis (manual Slight 08/02/18 20:35 Anisocytosis (manual) Slight 08/02/18 20:35 PT 13.1 Seconds (9.8-13.1) 08/02/18 20:35 INR 1.1 08/02/18 20:35 APTT 31.7 Seconds (25.6-37.1) 08/02/18 20:35 Sodium 137 mmol/l (132-148) 08/03/18 10:20 Potassium 4.0 MMOL/L (3.6-5.0) 08/03/18 10:20 Chloride 99 mmol/L (98-107) 08/03/18 10:20 Carbon Dioxide 28 mmol/L (22-30) 08/03/18 10:20 Anion Gap 14 (10-20) 08/03/18 10:20 BUN 21 mg/dl (7-17) H 08/03/18 10:20 Creatinine 1.2 mg/dl (0.7-1.2) 08/03/18 10:20 Est GFR ( Amer) 52 08/03/18 10:20 Est GFR (Non-Af Amer) 43 08/03/18 10:20 Random Glucose 115 mg/dL (65-105) H 08/03/18 10:20 Calcium 8.8 mg/dL (8.4-10.2) 08/03/18 10:20 Phosphorus 5.2 mg/dl (2.5-4.5) H 08/02/18 20:35 Magnesium 2.0 MG/DL (1.6-2.3) 08/02/18 20:35 Total Bilirubin 0.3 mg/dl (0.2-1.3) 08/02/18 20:35 AST 29 U/L (14-36) 08/02/18 20:35 ALT 24 U/L (9-52) 08/02/18 20:35 Alkaline Phosphatase 68 U/L (38-126) 08/02/18 20:35 Total Protein 7.1 G/DL (6.3-8.2) 08/02/18 20:35 Albumin 4.0 g/dL (3.5-5.0) 08/02/18 20:35 Globulin 3.1 gm/dL (2.2-3.9) 08/02/18 20:35 Albumin/Globulin Ratio 1.3 (1.0-2.1) 08/02/18 20:35 Lipase 96 U/L (23-300) 08/02/18 20:35 Blood Type A POSITIVE 08/02/18 20:35 Antibody Screen Negative 08/02/18 20:35 BBK History Checked Patient has bt 08/02/18 20:35 - Hospital Course Hospital Course: This is a 78 y/o female with hx of chronic anemia was admitted for vague abdominal pains and noted to have colitis on Ct scan of the abdomen. She Was admitted ofr observation and started on IV antibiotics. Initial labs showed WBC of 12.[address] scan showing colitis. Patient claimed that symptoms started after taking Naprosyn. She has a hx of anemia and has been hospitalized numerous times for transfusion and GI work up. Dr. Alan was called for consult. Patient was placed on NPO and IV antibiotics. She responded very well. Repeat CBC showed normal WBC. She was discharged in stable condition on 2nd day of hospitalization. She was advised follow up in 1 week. Discharge Exam - Head Exam Head Exam: NORMOCEPHALIC - Eye Exam Eye Exam: Normal appearance - Respiratory Exam Respiratory Exam: Clear to PA & Lateral - Cardiovascular Exam Cardiovascular Exam: REGULAR RHYTHM - GI/Abdominal Exam GI & Abdominal Exam: Normal Bowel Sounds - Neurological Exam Neurological exam: CN II-XII Intact - Psychiatric Exam Psychiatric exam: Normal Mood Discharge Plan - Discharge Medications Prescriptions: Ciprofloxacin [Cipro] 500 mg PO Q12 #14 tab Metronidazole [Flagyl] 500 mg PO Q8 #21 tablet - Follow Up Plan Condition: FAIR Disposition: HOME/ ROUTINE Instructions: Diverticulitis (DC) Additional Instructions: advised follow up in 1 week. Rx given. Referrals: Andrea Kim MD [Family Provider] -
== END 2018-08-04 15:35 | disposition home or self-care (01) ==
LOC: H.ER 18:41 → INTOOBSV 08-03 01:26 → H.ERHOLD 08-03 01:26 → H.TEL 08-03 06:50
PROVIDERS: ADMIT Family Medicine; ATTEND Family Medicine
DX: K57.32 Diverticulitis of large intestine without perforation or abscess without bleeding (principal); N18.9 Chronic kidney disease, unspecified; D64.9 Anemia, unspecified; F32.9 Major depressive disorder, single episode, unspecified; F41.9 Anxiety disorder, unspecified; H26.9 Unspecified cataract; L40.9 Psoriasis, unspecified; Z79.899 Other long term (current) drug therapy; R21 Rash and other nonspecific skin eruption; E03.9 Hypothyroidism, unspecified; E78.00 Pure hypercholesterolemia, unspecified; I12.9 Hypertensive chronic kidney disease with stage 1 through stage 4 chronic kidney disease, or unspecified chronic kidney disease; I25.10 Atherosclerotic heart disease of native coronary artery without angina pectoris; K29.70 Gastritis, unspecified, without bleeding; K44.9 Diaphragmatic hernia without obstruction or gangrene; K52.9 Noninfective gastroenteritis and colitis, unspecified
CPT/HCPCS: 36415; 74176; 80048; 80053; 83690; 83735; 84100; 85025; 85027; 85610; 85730; 86850; 86900; 93005; 96374; 96375; 99283; G0378; J0744; J1200; J2405; Q9966